=== PATIENT | male | born 1945 | race Caucasian/White ===

== ENCOUNTER 2023-10-11 09:47 | Emergency (ER) | payer MEDICARE, OTHER, SELFPAY ==
[2023-10-11 10:06] VITALS: BP 150/83
[2023-10-11 11:00] VITALS: BP 149/85
[2023-10-11 11:13] LABS: % Basophils 0.7 % (0-2); % Eosinophils 1.6 % (0-6); % Immature Granulocytes 0.3 % (0-0.5); % Lymphocytes 34.4 % (20.5-51.1); % Monocytes 6.5 % (1.7-9.3); % Neutrophils 56.5 % (42.2-75.2); Absolute Basophils 0.1 10^3/uL (0-0.2); Absolute Eosinophils 0.1 10^3/uL (0-0.7); Absolute Monocytes 0.6 10^3/uL (0.1-0.6); Absolute Neutrophils 4.9 10^3/uL (1.4-6.5); Hematocrit 31.6 % (39.0-52.0); Mean Corp Hgb Conc. 34.8 g/dL (33.0-37.0); Mean Corpuscular Hgb 32.6 pg (27.0-31.0); Mean Corpuscular Volume 93.8 fL (80.0-94.0); Mean Platelet Volume 9.8 fL (7.4-10.4); Nucleated Red Blood Cells % 0 % (-); Platelet Count 217 10^3/uL (130-400); Red Blood Cell Count 3.37 10^6/uL (4.70-6.10); Red Cell Dist. Width 14.3 % (11.5-14.5); White Blood Cell Count 8.6 10^3/uL (4.8-10.8)
[2023-10-11 11:32] LABS: Blood Urea Nitrogen 29 mg/dl (9-20); Calcium 9.2 mg/dl (8.4-10.2); Carbon Dioxide 22 mmol/L (22-30); Chloride 103 mmol/L (98-107); Glucose 135 mg/dl (70-99); Potassium 4.4 mmol/L (3.5-5.1); Sodium 137 mmol/L (135-145); eGFR > 60.00
[2023-10-11] MEDS: TYLENOL 1000 MG PO (11:48)
[2023-10-11 12:00] VITALS: BP 156/80
[2023-10-11] MEDS: KEFLEX 500 MG PO (12:33)
--- NOTE | 2023-10-22 15:14 | ED.GENMED ---
History of Present Illness
General
Chief Complaint: Nose Bleed
Time Seen by Provider: 10/11/23 10:40
History of Present Illness
History of Present Illness:
This is a LATE NOTE for the visit from 10/11/2023:
HPI:
The patient presents with nosebleed. It was primarily occurring from the right nostril however he has blood tracking in the back of his throat as well. He denies any other significant symptoms. He is on Eliquis for history of atrial fibrillation.
EXAM:
GENERAL: Well appearing in no distress
HEENT: Moist oral mucosa, there is no significant blood noted in the posterior oropharynx, there is scant amount of blood noted in both nostrils right greater than left
NEUROLOGIC: Excellent strength all extremities, no coordination deficits
PSYCHIATRIC: Appropriate mental status, normal insight and judgement
EXTREMITIES: Nontender, no edema, moves all extremities equally
SKIN: No rash, no lesions
NUMBER AND COMPLEXITY OF PROBLEMS ADDRESSED AT THE ENCOUNTER
� Chronic conditions affecting care: Paroxysmal A-fib on Eliquis, GERD
� Acute Exacerbation and/or Progression of Chronic Illness: This is an acute problem
� Differential Diagnosis includes: Anterior nosebleed, coagulopathy, posterior nosebleed, anemia
AMOUNT AND/OR COMPLEXITY OF DATA TO BE REVIEWED AND ANALYZED
� I performed an independent evaluation of and my interpretation is:
EKG:
CT:
X-rays:
Laboratory Studies: Hemoglobin 11.0, BUN 29, glucose 135
Other:
� Review of other/old records: The patient's hemoglobin in 2021 was 11.9
� Clinical information was obtained by an independent historian: None needed
� Prescriptions/Medications Considered but not given:
� Further testing considered but not performed:
RISK OF COMPLICATIONS AND/OR MORBIDITY OR MORTALITY OF PATIENT MANAGEMENT
� Social determinants of health affecting care: Lives at home
� Discussion with other providers:
� Escalation of care including admission/observation vs risk of discharge considered: I instructed to hold Eliquis for a couple of days. 5.5 cm rapid Rhino was placed. This was soaked with TXA. There is no further bleeding
after period of observation in the ED.
Past History
Past History
ED Past Medical History: Arrthythmia (Atrial fibrillation diagnosed in July 2019) and HTN; Negative CAD
ED Past Surgical History: Appendectomy and Other
Social History
Tobacco: Non-smoker
Alcohol: None
Drug: None
Personal:
Living: with family
Employment: Not employed
Family History
Family History: Hypertension
Phy Exam
Physical Exam
Physical Exam:
See HPI
Course
Orders/Labs/Results
Orders:
Orders
10/11/23 10:46
Phenylephrine 0.5% Regular Spr [Bryson-Synephrine 0.5% Nasal [place]] 1 spray .ROUTE .STK-MED ONE
10/11/23 10:50
Tranexamic Acid 1,000 mg .ROUTE .STK-MED ONE
10/11/23 11:01
Basic Metabolic Panel Urgent
Complete Blood Count/With Diff Urgent
10/11/23 11:42
Acetaminophen [Tylenol] 1,000 mg PO NOW STA
10/11/23 12:25
Cephalexin Monohydrate [Keflex] 500 mg PO NOW STA
Abnormal Lab Results
10/11/23
11:01
RBC 3.37 L 10^6/uL
(4.70-6.10)
Hgb 11.0 L g/dL
(13.0-18.0)
Hct 31.6 L %
(39.0-52.0)
MCH 32.6 H pg
(27.0-31.0)
BUN 29 H mg/dl
(9-20)
Glucose 135 H mg/dl
(70-99)
10/11/23 11:01
10/11/23 11:01
Vital Signs
Initial and Last Documented VS:
Initial Vital Signs
Temp Pulse BP Pulse Ox
97.8 F 93 150/83 99
10/11/23 10:06 10/11/23 10:06 10/11/23 10:06 10/11/23 10:06
Last Documented Vital Signs
Temp Pulse Resp BP Pulse Ox
97.8 F 88 17 156/80 96
10/11/23 10:06 10/11/23 12:30 10/11/23 12:30 10/11/23 12:00 10/11/23 12:30
Procedures
Nosebleed
Drug treatment: Tranexamic Acid
Treatment: local pressure applied and other (rapid rhino)
Post treatment bleeding: none- good control
*Critical Care Note
Total Time (30-74mins, 75-104mins- exclusive of procedures): Not Applicable
ED Attending Note
-
Portions of this chart may have been created with voice recognition software.� Occasional wrong word or��sound alike� substitutions may have occurred due to the inherent limitations of voice recognition software.
Discharge Plan
Departure
Patient Disposition: Home (Routine Discharge)
Date of Disposition: 10/11/23
Time of Disposition: 12:24
Patient with high blood pressure during this ER visit?: Yes
Discharge Problem:
Epistaxis
Instructions: Nosebleeds (DC), BLOOD PRESSURE
Prescriptions:
No Action
trazodone 100 mg Tablet
100 mg PO HS
escitalopram oxalate 20 mg Tablet
20 mg PO DAILY
lisinopril 5 mg tablet
5 mg PO DAILY Qty: 30 0RF
atorvastatin 80 mg Tablet
80 mg PO QPM
multivitamin Tablet
1 tab PO QPM
omeprazole 40 MG capsule,delayed release(DR/EC)
40 mg PO DAILYPRN PRN (Reason: GI issues)
metoprolol tartrate 25 mg Tablet
25 mg PO BID
tadalafil 20 mg Tablet
20 mg PO DAILYPRN PRN (Reason: ed)
famotidine [Pepcid] 40 mg Tablet
40 mg PO HS
pantoprazole [Protonix] 40 mg Tablet,Delayed Release (Dr/Ec)
40 mg PO DAILY
cholecalciferol (vitamin D3) [Vitamin D3] 25 mcg (1,000 unit) Tablet
25 mcg PO DAILY
aspirin 81 mg Tablet,Chewable
81 mg PO DAILY
PreserVision AREDS 2,148 mcg-113 mg-45 mg-17.4mg Tablet
1 tab PO BID
Eliquis 5 MG tablet
5 mg PO BID Qty: 180 1RF
Rx Instructions:
hold until 10/22/2023
Referrals:
Luigi Miller MD [Active] - Follow up in 2-3 days
Kavitha Anders MD [Family Provider] -
Activity Restrictions/Additional Instructions:
I placed a 5.5 cm rapid Rhino in the right nostril. I soaked this with TXA as well. This seems to of control the bleeding. Your hemoglobin level is 11.0�this is only slightly lower than 11.9 in 2021. Return here if worse. I recommend that you
call an ENT doctor such as Dr. Miller for follow-up. You will need to keep the packing in for the next couple of days. I gave a one-time dose of an antibiotic to help prevent infection because of the packing in your nostril. I recommend that you
also hold the Eliquis for the next day. Be sure to continue your blood pressure medication as well.
Interventions
Interventions:
ED- Fall Risk Assessment Last Done: 10/11/23 10:29
*ED COVID-19 Vaccine History Last Done: 10/11/23 10:09
*Nursing Disposition Last Done: 10/11/23 12:47
ED-EENT Assessment Last Done: 10/11/23 10:29
Discharge Date and Time
Discharge Date/Time: 10/11/23 12:47
Print Language: AFGHAN
== END 2023-10-11 12:47 | disposition home or self-care (01) ==
LOC: EMR 09:47
PROVIDERS: EMERGENCY PHYSICIAN Emergency Medicine; FAMILY PHYSICIAN Internal Medicine
DX: R04.0 Epistaxis (principal); I48.91 Unspecified atrial fibrillation; Z79.01 Long term (current) use of anticoagulants
CPT/HCPCS: 99283; 30901; 80048; 85025

== ENCOUNTER 2023-10-14 00:16 | Inpatient (IN) | payer MEDICARE, OTHER, SELFPAY ==
[2023-10-11 23:31] VITALS: BP 142/86
[2023-10-12] VITALS (10 sets, daily range): BP systolic 133–170; BP diastolic 68–90; BMI 23.8; BMI 22.7
[2023-10-12 01:00] LABS: Hematocrit 30.8 % (39.0-52.0); Hemoglobin 10.5 g/dL (13.0-18.0); Mean Corp Hgb Conc. 34.1 g/dL (33.0-37.0); Mean Corpuscular Hgb 32.8 pg (27.0-31.0); Mean Corpuscular Volume 96.3 fL (80.0-94.0); Mean Platelet Volume 10.5 fL (7.4-10.4); Platelet Count 220 10^3/uL (130-400); Red Cell Dist. Width 14.4 % (11.5-14.5); White Blood Cell Count 11.5 10^3/uL (4.8-10.8)
[2023-10-12] MEDS: MORPHINE SULFATE 4 MG IV (01:12)
[2023-10-12] MEDS: NSS 1000 IV (01:13)
[2023-10-12 01:35] LABS: Blood Urea Nitrogen 33 mg/dl (9-20); Calcium 9.4 mg/dl (8.4-10.2); Carbon Dioxide 20 mmol/L (22-30); Chloride 102 mmol/L (98-107); Glucose 163 mg/dl (70-99); Potassium 3.7 mmol/L (3.5-5.1); Sodium 137 mmol/L (135-145); eGFR > 60.00
--- NOTE | 2023-10-12 02:03 | ED.GENMED ---
History of Present Illness
General
Chief Complaint: Nose Bleed
Source: patient and spouse
Exam Limitations: none
Time Seen by Provider: 10/12/23 01:06
Nursing documentation reviewed up to this point in time: agreed with
History of Present Illness
History of Present Illness:
This is a 78-year-old gentleman with history of atrial fibrillation chronically maintained on Eliquis. He complains of intermittent epistaxis right nostril that initially began 2 weeks ago. Epistaxis worsened yesterday and he was evaluated in this
ED yesterday October 10 requiring an Epistat balloon placement in his right nostril which was initially effective in stopping the nosebleed.
He returns tonight with complaints of recurrent bleeding around the nasal stat as well as a sense of swallowing blood in the back of his throat.
He did stop the Eliquis 2 days ago due to recurrent right nostril epistaxis and he has an initial appointment with ENT scheduled for later this week.
He has had rare intermittent nosebleeds in the past but has never required ED visit nor ENT evaluation.
He complains of moderate pressure, pain within his nose and sinus area. He had mild nausea but no vomiting. Intermittent lightheadedness but no falls or syncope.
He denies fevers or chills.
Past History
Past History
ED Past Medical History: Arrthythmia (Atrial fibrillation diagnosed in July 2019) and HTN; Negative CAD
ED Past Surgical History: Appendectomy and Other
Social History
Tobacco: Non-smoker
Alcohol: None
Drug: None
Personal:
Living: with family
Employment: Not employed
Family History
Family History: Hypertension
Phy Exam
Physical Exam
Physical Exam:
GENERAL: 78-year-old gentleman appears his stated age, awake and alert, appears in moderate distress, sitting upright on stretcher, at bedside eyes intermittently dabbing at his nose.
EYE: anicteric
NECK: Supple, nontender, no meningismus, no significant adenopathy.
ENT: Nasostat balloon catheter tubing extruding from right nostril with scant oozing of blood from the right nostril. An additional half cc of air instilled into nasostat with successful resolution of epistaxis. There is mild streaking of blood
posteriorly but no active bleeding noted posterior pharynx. Left nostril is clear.
CARDIAC: Regular rate and rhythm. no murmur.
LUNGS: Clear breath sounds bilaterally, no acute respiratory distress, no wheezes/rales/rhonchi
ABDOMEN: Soft, nondistended, without focal tenderness
NEUROLOGICAL: Alert and oriented x3, no focal neuro deficits.
SKIN: Warm and dry, normal color, skin intact. No rash.
MUSCULOSKELETAL: No C/C/E. peripheral pulses are full and equal b/l. No palpable tenderness.
PSYCH: Normal and appropriate interaction.
Course
Orders/Labs/Results
Orders:
Orders
10/12/23 00:55
CBC/No Diff [Complete Blood Count/No Diff] Urgent
10/12/23 01:05
BMP [Basic Metabolic Panel] Urgent
10/12/23 01:08
0.9% Sodium Chloride 1000 ml [Nss] 1,000 ml IV BOLUS
Morphine Sulfate 4 mg IV NOW STA
10/12/23 02:36
CeFAZolin 1 GRAM [Ancef] 1 gram in 5 ml IV NOW
10/12/23 03:00
Flush (0.9% Sodium Chloride) [Flush (Nss)] See Dose Instructions IV PER PROTOCOL
10/12/23 03:47
CeFAZolin 1 GRAM [Ancef] 1 gram in 5 ml IV NOW
10/12/23 04:59
Admit/Transfer Patient As Directed
Co-Sign Provider:
Level of Care: Observation services
Assign to:: Medical/Surgical
Physician / Group: [email or web address]
Diagnosis: recurrent epistaxis
10/12/23 05:00
Code Status As Directed
Resuscitation Status: Full Code
10/12/23 Breakfast
Regular
At Your Request: Full Participation
10/12/23 06:53
0.9% Sodium Chloride [Nss (Preservative Free)] See Protocol IV PRN PRN
Bisacodyl [Dulcolax] 10 mg RECTAL [id number] PRN
Docusate W/Senna [Senokot-S] 1 tablet PO BIDPRN PRN
FOLic ACID [Folvite] 1 mg 0.9% Sodium Chloride 50 ml [Nss] 50 ml IV DAILYPRN
Lorazepam [Ativan] 1 mg IV Q1HPRN PRN
Lorazepam [Ativan] 1 mg PO Q2HPRN PRN
Lorazepam [Ativan] 2 mg IV Q1HPRN PRN
Polyethylene Glycol Powder [Miralax] 17 grams PO DAILYPRN PRN
10/12/23 06:53
Case Management Consult Once
Case Management Consult: Other
Comment: Substance abuse counseling
DIETARY CONSULT Routine
Reason for Consult: Nutrition support, possible refeeding guidelines
ENT CONSULT Routine
Consulting Provider: Luigi Miller
Was physician already notified: Yes
Reason for Consult: Intermittent recuret epistaxis from Rt nostril
GGTP Urgent
Activity As Directed
Activity Level: With Assistance
Intake/ Output As Directed
Frequency: Per unit guidelines
MSAS SCORE As Directed
MSAS Score 0-4: Repeat MSAS every 2 hours until 0-4 for three consecutive assessments, then every 4 hours x 48
hours.
MSAS Score 5-7: For MILD withdrawl symptoms. Repeat MSAS and RASS every 2 hours
MSAS Score 8-11: For MODERATE withdrawal symptoms. Repeat MSAS and RASS every 1 hour. Consider ICU or IMU
level of care.
MSAS Score > 11: For SEVERE withdrawal symptoms. Repeat MSAS and RASS every 1 hour. Notify provider, consider
ICU level of care.
MSAS Additional Instructions: If no improvement or no decrease in score from severe to moderate within 12
hours, consult psychiatry
MSAS Notify Provider: Notify provider if patient requires more than 10 mg of Lorazepam in eight hour period.
Pneumatic Compression Sleeves As Directed
Type: Knee high
Vital Signs As Directed
Frequency: Per unit guidelines
DX Deep Vein Thrombosis Video Routine
10/12/23 08:00
FOLic ACID [Folvite] 1 mg PO DAILY
Thiamine Injection 200 mg IV Q12
10/13/23 06:00
Basic Metabolic Panel IN AM
CBC/No Diff [Complete Blood Count/No Diff] IN AM
10/15/23 08:00
Thiamine HCl [Vitamin B1] 100 mg PO BID
Abnormal Lab Results
10/12/23 10/12/23
00:55 01:05
WBC 11.5 H 10^3/uL
(4.8-10.8)
RBC 3.20 L 10^6/uL
(4.70-6.10)
Hgb 10.5 L g/dL
(13.0-18.0)
Hct 30.8 L %
(39.0-52.0)
MCV 96.3 H fL
(80.0-94.0)
MCH 32.8 H pg
(27.0-31.0)
MPV 10.5 H fL
(7.4-10.4)
Carbon Dioxide 20 L mmol/L
(22-30)
BUN 33 H mg/dl
(9-20)
Glucose 163 H mg/dl
(70-99)
10/12/23 00:55
10/12/23 01:05
Vital Signs
Initial and Last Documented VS:
Initial Vital Signs
Pulse Resp BP Pulse Ox
112 26 142/86 96
10/11/23 23:31 10/11/23 23:31 10/11/23 23:31 10/11/23 23:31
Last Documented Vital Signs
Temp Pulse Resp BP Pulse Ox
97.8 F 107 16 163/86 96
10/12/23 08:31 10/12/23 08:31 10/12/23 08:31 10/12/23 08:31 10/12/23 04:45
MDM/Problems Addressed
Differential Diagnosis Includes:
Recurrent right nostril epistaxis despite Rhino Rocket in place and discontinuation of Eliquis 2 days ago.
Bleeding currently controlled with additional air inserted into Rhino Rocket.
Patient overall appears quite uncomfortable, will initiate IV fluids, IV pain medication and check labs, assess for potential acute blood loss anemia. Thus far remains hemodynamically stable.
Due to advanced age, multiple chronic medical conditions, recurrent bleeding patient will likely require acute hospitalization for close observation, pain medication and ENT evaluation.
Chronic conditions affecting care: HTN, Arrhythmia and Psychiatric illness
*Pulse Oximetry
Patient hypoxic: no
*Critical Care Note
Total Time (30-74mins, 75-104mins- exclusive of procedures): Not Applicable
Update Note
Update Note:
10/12/2023 0229 AM
Patient appears mildly more comfortable after IV morphine. He remains hemodynamically stable.
Scant intermittent oozing of blood from right nostril but for the most part remained stable and dry.
Hemoglobin 10.5 has dropped half a gram from yesterday at 11.0.
Reviewing previous records it appears patient's baseline hemoglobin is in the 11's
Will plan to admit to hospitalist service, continue IV fluids, IV pain medication and consider ENT evaluation in the a.m.
Will give Ancef for sinusitis prevention.
ED Attending Note
-
Portions of this chart may have been created with voice recognition software.� Occasional wrong word or��sound alike� substitutions may have occurred due to the inherent limitations of voice recognition software.
Discharge Plan
Departure
Patient Disposition: Admit
Date of Disposition: 10/12/23
Time of Disposition: 02:36
Admit to doctor: Shayy
Presentation/result/management discussed w/ accepting MD/DO: Hospitalist
Condition: Fair
Discharge Problem:
severe recurrent epistaxis
Interventions
Interventions:
*Risk Screen - Suicide Last Done: 10/11/23 23:31
*Neglect/Abuse Screening Last Done: 10/11/23 23:31
*Nursing Disposition Last Done: 10/12/23 07:09
ED-EENT Assessment Last Done: 10/12/23 01:15
[2023-10-12] MEDS: ANCEF 5 IV (04:12)
--- NOTE | 2023-10-12 04:54 | HPS.HSE ---
Family Physician
-
Family Physician: Kavitha Anders
Chief Complaint
-
nose bleed
History of Present Illness
78M HX chr eliquis for Prx AF seen at ER for evaluation of epistaxis.
- intermittent epistaxis form Rt nostril started 2 weeks ago
- seen at ER , Tx with Epistat balloon placement in right nostril yesterday
- Retuned tonight for recurrent epistaxis for Rt nostril
- stop Eliquis 3 days ago
Medical History
Past Medical History
Past Medical History: Reports Other
Additional Past Medical History:
Paroxysmal Atrial Fibrillation
Alcohol Use Disorder
Hypertension
GERD
Major Depression
Peripheral Neuropathy
History of ZAC Requiring Temporary HD
Past Surgical History: Reports Other
Additional Past Surgical History:
Bilateral Foot Surgeries
Appendectomy
Bilateral GASTON
R IJ HD Cath (temporary)
Social History
Tobacco: Former Smoker (Quit smoking 50 years ago.)
Alcohol: Other (History of chronic alcohol abuse. Patient states he drinks occasional beer. Denies daily or binge drinking.)
Drug: None
Family History
Family History: Not pertinent
Allergies / Home Medications
Allergies reflects when Allergies were last updated in [employer] [facility].
Home Medications with original date entered in [facility]
Allergy/Medication List:
Allergies
Allergy/AdvReac Type Severity Reaction Status Date / Time
acetaminophen [From Vicodin] Allergy Rash Verified 10/06/19 17:17
hydrocodone [From Vicodin] Allergy Rash Verified 10/06/19 17:17
Home Medications
apixaban 5 mg tablet (Eliquis) 5 mg PO BID #180 tabs 08/16/19
gabapentin 300 mg capsule 300 mg PO BID Pain 08/16/19
metoprolol tartrate 100 mg tablet 100 mg PO BID Blood pressure 08/16/19
temazepam 30 mg capsule (Restoril) 30 mg PO HS Mental Health/Anxiety 08/16/19
atorvastatin 40 mg tablet 80 mg PO QPM High cholesterol 10/06/19
omeprazole 40 mg capsule,delayed release 40 mg PO BID Gastrointestinal issue ##0 10/09/19
amlodipine 5 mg tablet 5 mg PO DAILY 10/19/21
docusate sodium 100 mg capsule (Colace) 100 mg PO DAILY 10/19/21
escitalopram oxalate 20 mg tablet 20 mg PO DAILY 10/19/21
fluoxetine 10 mg tablet 10 mg PO DAILY 10/19/21
lisinopril 10 mg tablet 10 mg PO DAILY 10/19/21
naltrexone 50 mg tablet 50 mg PO DAILY 10/19/21
trazodone 100 mg tablet 100 mg PO HS 10/19/21
Review of Systems
-
Constitutional: Reports No Symptoms
EENT: Reports Other (epistaxis from Rt nostril )
Respiratory: Reports No Symptoms
Cardiac: Reports No Symptoms
Abdomen/GI: Reports No Symptoms
: Reports No Symptoms
Musculoskeletal: Reports No Symptoms
Skin: Reports No Symptoms
Neurological: Reports No Symptoms
Endocrine: Reports No Symptoms
Hematologic/Lymphatic: Reports No Symptoms
Psych: Reports No Symptoms
Physical Exam
Vital Signs
Vital Signs
Pulse Resp BP Pulse Ox
88 18 133/78 96
10/12/23 02:44 10/12/23 02:44 10/12/23 02:44 10/12/23 04:45
Physical Exam
General: Well Developed, Well Nourished and Appears in Distress (mild )
HEENT: NormoCephalic, Anicteric, Moist mucous membranes, Atraumatic and Other (Nasostat balloon catheter tubing extruding from right nostril. Scant oozing of blood from the right nostril)
Respiratory: Clear
Cardiac: S1/S2, Regular Rhythm and Tachycardia; No Murmur or Rub
Breast: Deferred by me
GI: Soft, Non Tender, Non Distended and Normal Bowel Sounds; No Organomegaly
Rectal: Deferred by Provider
Genito-urinary: Deferred by me
Musculoskeletal: No Clubbing, No Cyanosis and No Edema
Skin: No Rash
Neuro: Nonfocal/grossly intact
Laboratory Results
-
10/12/23 00:55
10/12/23 01:05
Data Reviewed
-
Lab Data: Labs Reviewed by me
Old Records: Reviewed
Impression/Plan
-
Reviewed VS: afebrile HR 112 BP 140/85 RR 26
Data
WCC 11.5
Hgb 10.5 - was 11- 11.5
Plt 220
BUN 20
nl Cr
BG 163
Last hospitalist admission: 10/19/21 - 10/23/22
1. Possible syncope secondary to orthostatic hypotension versus alcohol abuse.
2. Hyponatremia secondary to alcohol use/beer potomania positive plus or minus related to fluoxetine.
3. Metabolic acidosis and hyperkalemia, suspect acidosis secondary to alcohol abuse.
4. Headache which seems secondary to alcohol withdrawal versus concussion with mechanical fall versus worsening of myopia.
ASSESSMENT & PLAN
Pending Rx reconciliation
Recurrent epistaxis
- intermittent oozing of blood from right nostril but for the most part remained stable and dry.
- Borderline acute blood loss anemia : minimal drop in Hgb ( 11.0 --> 10.5)
- Empiric IV Cefazolin
- Trend Hgb
- ENT consulted
Prx AF
- held Eliquis since 10/09/23
- cont Metoprolol
Essential HTN
- cont Lisinopril , Metoprolol
Peripheral neuropathy.
HX depression.
- cont Escitalopram
SHx suggestive of ETOH use disorder - report a couple of Beer daily
Post traumatic stress disorder.
- MSAS protocol
DVT Px: SCD
Full code
Obs MS
--- NOTE | 2023-10-12 08:08 | PHANOTE ---
Addendum entered by Daina Torres 10/12/23 08:12:
Patient does Eliquis at retail pharmacy and some ecw at this time until [facility]
Original Note:
[facility] [phone] option 1 then 2, unfortunately wasn't not able to speak to pharmacy someone at the call center did take my information and awaiting call back and/or fax of medication list
[2023-10-12] MEDS: FOLVITE 1 MG PO (09:43)
[2023-10-12] MEDS: THIAMINE INJECTION 200 MG IV ×2 (09:43→20:43)
[2023-10-12] MEDS: TYLENOL 650 MG PO ×2 (09:45→16:43)
[2023-10-12 10:37] LABS: GGTP 62 U/L (15-73)
--- NOTE | 2023-10-12 12:22 | CON.MD ---
Consultation - Medical
-
Epistaxis
78 yo c HTN, afib on Eliquis, EtOH use, R nasal packing placed yesterday for epistaxis. Presented today for recurrent bleeding.
BP still mildly elevated, Eliquis being held
Packing apparently adjusted, not actively bleeding
R pack in place
OC - dry
A/P Epistaxis
Controlled with present packing
Can add additional few cc's of air if needed into present pack
Would continue prophylactic Ancef to avoid sinusitis
Continue to hold Eliquis for additional 3-4 days
Would leave packing in place 2- 3 days
Remove in office if discharged, otherwise will remove in hospital
Follow BP, H & H
[2023-10-12] MEDS: LOPRESSOR 25 MG PO ×2 (15:11→20:43)
[2023-10-12] MEDS: ZESTRIL 5 MG PO (15:12)
[2023-10-12] MEDS: LEXAPRO 20 MG PO (15:12)
[2023-10-12] MEDS: PROTONIX 40 MG PO (15:12)
--- NOTE | 2023-10-12 20:10 | PTCARENOTE ---
Pt began to bleed a moderate amount from the R nostril w/ the balloon in place. Pt stated he felt SOB, dizzy, 10/10 headache. VSS sating 95% on room air. RN placed 2L NC in the left nostril with humidified O2 sating 95% for comfort. RN notified BALANCE STAFF INSPECTOR
to come assess patient. After 15 minutes, pt stopped bleeding. BALANCE STAFF INSPECTOR ordered Tylenol 1000mg for headache. Pt is resting comfortably w/ call steele within reach.
[2023-10-12] MEDS: LIPITOR 80 MG PO (20:48)
[2023-10-12] MEDS: TYLENOL 1000 MG PO (20:49)
[2023-10-12] MEDS: DESYREL 100 MG PO (22:35)
[2023-10-12] MEDS: PEPCID 40 MG PO (22:35)
[2023-10-12] MEDS: COMPAZINE 5 MG IV (23:11)
[2023-10-13 06:48] LABS: Hematocrit 27.8 % (39.0-52.0); Hemoglobin 9.3 g/dL (13.0-18.0); Mean Corp Hgb Conc. 33.5 g/dL (33.0-37.0); Mean Corpuscular Hgb 32.9 pg (27.0-31.0); Mean Corpuscular Volume 98.2 fL (80.0-94.0); Mean Platelet Volume 10.2 fL (7.4-10.4); Platelet Count 193 10^3/uL (130-400); Red Blood Cell Count 2.83 10^6/uL (4.70-6.10); Red Cell Dist. Width 14.5 % (11.5-14.5); White Blood Cell Count 11.1 10^3/uL (4.8-10.8)
[2023-10-13 07:18] LABS: Blood Urea Nitrogen 21 mg/dl (9-20); Calcium 8.9 mg/dl (8.4-10.2); Carbon Dioxide 26 mmol/L (22-30); Chloride 104 mmol/L (98-107); Estimated Creatinine Clearance 65 ml/min; Glucose 115 mg/dl (70-99); Potassium 4.5 mmol/L (3.5-5.1); Sodium 137 mmol/L (135-145); eGFR > 60.00
[2023-10-13 07:20] VITALS: BP 147/75
[2023-10-13] MEDS: THIAMINE INJECTION 200 MG IV ×2 (08:27→20:39)
[2023-10-13] MEDS: FOLVITE 1 MG PO (08:27)
[2023-10-13] MEDS: LEXAPRO 20 MG PO (08:27)
[2023-10-13] MEDS: ZESTRIL 5 MG PO (08:27)
[2023-10-13] MEDS: LOPRESSOR 25 MG PO ×2 (08:27→20:38)
[2023-10-13] MEDS: PROTONIX 40 MG PO (08:27)
[2023-10-13] MEDS: TYLENOL 650 MG PO (08:28)
--- NOTE | 2023-10-13 11:04 | W.PN.HOSP.TC ---
Today's Communication/Plan
-
CW nasal balloon catheter and antibiotics
Follow ENT recs
Assessment / Plan
Assessment / Plan
Recurrent epistaxis
- Status post right nasal ballon catheter insertion. Pressure increased yesterday in the balloon catheter. Still some ongoing oozing. Appreciate ENT input. ENT to review regarding further treatments-cautery versus topical medication
application.
- Empiric IV Cefazolin
- Trend Hgb
Prx AF
- held Eliquis since 10/09/23
- cont Metoprolol
Essential HTN
- cont Lisinopril , Metoprolol
Peripheral neuropathy.
HX depression.
- cont Escitalopram
SHx suggestive of ETOH use disorder - report a couple of Beer daily
Post traumatic stress disorder.
- MSAS protocol
- No signs of NURIS
DVT Px: SCD
Full code
Obs MS
Anticipated Discharge: 24 - 48 hours
Subjective/Interval History
-
Date of Service: October 13, 2023
Slow anterior ooze from the right nostril. Denies any posterior nasal dripping. Some discomfort from the nasal balloon catheter. No fever or chills.
No nausea vomiting.
Objective Data
-
Labs:
Laboratory Results
10/13/23
05:36
WBC 11.1 H
Hgb 9.3 L
Hct 27.8 L
Plt Count 193
Sodium 137
Potassium 4.5
Chloride 104
Carbon Dioxide 26
BUN 21 H
Creatinine 0.9
Glucose 115 H
Calcium 8.9
Vital Signs:
Vital Signs
Temp Pulse Resp BP Pulse Ox
98.6 F 73 18 147/75 91
10/13/23 07:20 10/13/23 08:27 10/13/23 07:20 10/13/23 08:27 10/13/23 07:20
I&O
10/12/23 10/13/23 10/14/23
06:59 06:59 06:59
Intake Total 240 / 240
Balance 240 / 240
Review of Systems
-
Respiratory: Denies Trouble Breathing
Cardiac: Denies Chest Pain
Neuro: Denies Dizzy
Physical Exam
-
General: No Apparent Distress
HEENT: Moist Mucous Membranes and Other (nasal balloon catheter in situ R side ; some ooze of dark blood noted. No profuse epistaxis.)
Respiratory: Non Labored Respirations and Accessory Resp Muscle Use
Cardiac: Regular Rhythm and S1/S2
Psych: Calm; Negative Confused
Data Reviewed
-
Labs: Labs Reviewed by me
--- NOTE | 2023-10-13 12:04 | W.PN.UPDATE ---
Update Note
Progress Note Update
Pt had some oozing R nares this AM
Hgb - sl drop to 9.[address] - no active bleeding
OC - dry
A/P Epistaxis
OK with present pack
Added additional 1-2 cc of air
Antibiotic on cotton ball placed in ant nares to help with ooze
On prophylactic antibx
Possible removal of pack in 1-2 days
Can be done in office if discharged
[2023-10-13] MEDS: TORADOL 15 MG IV (16:06)
--- NOTE | 2023-10-13 16:29 | CM ---
Alert awake oriented patient who lives with his Jessica who lives in a 2 story home with 3 step to enter and 10 steps to bed and bathroom. He is independent in driving and in all activities of daily living.He was offered VN he declined need.CPAP
with [facility]MARISELA letter given and explained.
No VN hx / No SNF history
Pharmacy [facility]
PCP DR Anders
PLAN Home Declined VN
[2023-10-13] MEDS: LIPITOR 80 MG PO (17:17)
--- NOTE | 2023-10-13 17:21 | PTCARENOTE ---
pt started bleeding through the R nare, while eating dinner. Pressure applied, gauge changed. ENT made aware. no new orders at this time. will continue plan of care.
[2023-10-13] MEDS: DESYREL 100 MG PO (21:02)
[2023-10-13] MEDS: PEPCID 40 MG PO (21:03)
[2023-10-13 23:41] VITALS: BP 93/46
[2023-10-14] VITALS (15 sets, daily range): BP systolic 109–144; BP diastolic 50–71
[2023-10-14] MEDS: THIAMINE INJECTION 200 MG IV ×2 (09:41→20:10)
[2023-10-14] MEDS: PROTONIX 40 MG PO (09:42)
[2023-10-14] MEDS: FOLVITE 1 MG PO (09:42)
[2023-10-14] MEDS: LOPRESSOR 25 MG PO ×2 (09:42→20:06)
[2023-10-14] MEDS: LEXAPRO 20 MG PO (09:42)
[2023-10-14] MEDS: ZESTRIL 5 MG PO (09:43)
[2023-10-14] MEDS: TORADOL 15 MG IV (09:51)
--- NOTE | 2023-10-14 10:48 | PTCARENOTE ---
Patient with nose bleed this AM. ENT and Dr. Martins made aware. Plan of care ongoing.
--- NOTE | 2023-10-14 11:03 | W.PN.HOSP.TC ---
Today's Communication/Plan
-
Continue with the nasal balloon catheter. ENT following.
Follow H&H. Continue with empirical antibiotics.
Assessment / Plan
Assessment / Plan
Recurrent epistaxis
- Status post right nasal balloon catheter insertion. Pressure increased again yesterday in the balloon catheter. Remains with some ongoing oozing. ENT following. ENT to review regarding further treatments
- Empiric IV Cefazolin
- Trend Hgb
Acute blood loss anemia - HH dropped more than a gram since admission.Lab from today pending. BP stable.
Melena sec to epistaxis .
Prx AF
- held Eliquis since 10/09/23
- cont Metoprolol
Essential HTN
- cont Lisinopril , Metoprolol
Peripheral neuropathy.
HX depression.
- cont Escitalopram
SHx suggestive of ETOH use disorder - report a couple of Beer daily
Post traumatic stress disorder.
- MSAS protocol
- No signs of NURIS
DVT Px: SCD
Full code
Obs MS
Anticipated Discharge: 24 - 48 hours
Subjective/Interval History
-
Date of Service: October 14, 2023
Patient still with a slight ongoing ooze from right nostril. He is noticing black stools today.
No fever or chills.
Objective Data
-
Vital Signs:
Vital Signs
Temp Pulse Resp BP Pulse Ox
98.9 F 64 20 128/71 92
10/14/23 07:55 10/14/23 09:42 10/14/23 07:55 10/14/23 09:42 10/14/23 07:55
I&O
10/13/23 10/14/23 10/15/23
06:59 06:59 06:59
Intake Total 240 / 240 240 / 240
Balance 240 / 240 240 / 240
Review of Systems
-
Constitutional: Denies Fever
Respiratory: Denies Trouble Breathing
Cardiac: Denies Chest Pain
Abdomen/GI: Denies Nausea or Vomiting
Neuro: Denies Dizzy
Physical Exam
-
General: No Apparent Distress
HEENT: Moist Mucous Membranes and Other (right nare with Balloon catheter with anterior epistaxis at this minute.)
Respiratory: Non Labored Respirations; Negative Accessory Resp Muscle Use
Neuro: AO x 3
[2023-10-14 11:56] LABS: Hematocrit 26.7 % (39.0-52.0); Hemoglobin 8.9 g/dL (13.0-18.0); Mean Corp Hgb Conc. 33.3 g/dL (33.0-37.0); Mean Corpuscular Hgb 32.6 pg (27.0-31.0); Mean Corpuscular Volume 97.8 fL (80.0-94.0); Mean Platelet Volume 10.1 fL (7.4-10.4); Platelet Count 208 10^3/uL (130-400); Red Blood Cell Count 2.73 10^6/uL (4.70-6.10); Red Cell Dist. Width 14.7 % (11.5-14.5); White Blood Cell Count 9.4 10^3/uL (4.8-10.8)
--- NOTE | 2023-10-14 12:04 | W.PN.UPDATE ---
Update Note
Progress Note Update
intermittent bleeding with pack in place
Stable but Hgb continues to slowly drop
Will take pt to OR for endoscopic control of nasal bleeding
[2023-10-14 12:41] LABS: INR 1.04; PT 13.6 Sec (11.4-14.6)
[2023-10-14] MEDS: MORPHINE SULFATE 2 MG IV (12:50)
--- NOTE | 2023-10-14 14:40 | W.PN.UPDATE ---
Update Note
Progress Note Update
Pt taken to OR due to intermittent bleeding
No significant active bleeding, source seemed to be primarily along anterior/inferior septum
Cauterized
Pack replaced to promote healing
Follow H & H , coag studies pending
Potentially could have packing removed in AM, and d/c home if stable
--- NOTE | 2023-10-14 14:45 | CM ---
As per UR pt changed to inpatient status.
On CM rounds pt had epistaxis episode.
Will give IMM letter tomorrow.
Offered VN yesterday he had declined.
PLAN Home no anticipated VN need
--- NOTE | 2023-10-14 15:50 | PTCARENOTE ---
Arrived from OR with rapid rhino intact. Call steele within reach.
[2023-10-14] MEDS: ANCEF 5 IV ×2 (16:19→23:51)
[2023-10-14] MEDS: LIPITOR 80 MG PO (16:19)
[2023-10-14] MEDS: ANESTHETIC LOZENGE 1 LOZENGE PO (18:25)
[2023-10-14] MEDS: DESYREL 100 MG PO (21:24)
[2023-10-14] MEDS: PEPCID 40 MG PO (21:24)
[2023-10-15] VITALS (13 sets, daily range): BP systolic 122–162; BP diastolic 60–75
[2023-10-15] MEDS: TORADOL 15 MG IV ×3 (04:40→23:23)
[2023-10-15 07:04] LABS: Hematocrit 25.1 % (39.0-52.0); Hemoglobin 8.3 g/dL (13.0-18.0); Mean Corp Hgb Conc. 33.1 g/dL (33.0-37.0); Mean Corpuscular Hgb 32.8 pg (27.0-31.0); Mean Corpuscular Volume 99.2 fL (80.0-94.0); Platelet Count 207 10^3/uL (130-400); Red Blood Cell Count 2.53 10^6/uL (4.70-6.10); Red Cell Dist. Width 14.2 % (11.5-14.5); White Blood Cell Count 17.8 10^3/uL (4.8-10.8)
[2023-10-15] MEDS: ANCEF 5 IV ×3 (09:14→23:24)
[2023-10-15] MEDS: ZESTRIL 5 MG PO (09:15)
[2023-10-15] MEDS: PROTONIX 40 MG PO (09:15)
[2023-10-15] MEDS: LEXAPRO 20 MG PO (09:15)
[2023-10-15] MEDS: LOPRESSOR 25 MG PO ×2 (09:15→21:35)
[2023-10-15] MEDS: FOLVITE 1 MG PO (09:15)
[2023-10-15] MEDS: VITAMIN B1 100 MG PO ×2 (09:16→21:35)
[2023-10-15 10:22] LABS: Iron 31 ug/dl (49-181)
[2023-10-15 10:31] LABS: Percent Saturation 9 % (20-50); Total Iron Binding Capacity 317 ug/dl (261-462)
[2023-10-15 10:59] LABS: Ferritin 11.9 ng/ml (17.9-464.0)
--- NOTE | 2023-10-15 11:46 | W.PN.HOSP.TC ---
Today's Communication/Plan
-
DC planning
Assessment / Plan
Assessment / Plan
Recurrent epistaxis
- Status post right nasal balloon catheter insertion.
- Continue breathing had right nose cautery with control of bleeding in OR yesterday. Prophylactic right nasal balloon catheter in place. No further epistaxis.
- Empiric IV Cefazolin
Acute blood loss anemia - HH dropped more than a gram since admission.Lab noted. BP stable. Check iron stores and replete if needed otherwise continue to monitor.
Melena sec to epistaxis .
Leukocytosis-elevated white count post cautery noted suspect reactive. Afebrile. Currently on IV Ancef -continue.
Prx AF
- held Eliquis since 10/09/23
- cont Metoprolol
Essential HTN
- cont Lisinopril , Metoprolol
Peripheral neuropathy.
HX depression.
- cont Escitalopram
SHx suggestive of ETOH use disorder - report a couple of Beer daily
Post traumatic stress disorder.
- MSAS protocol
- No signs of NURIS
DVT Px: SCD
Full code
DC home today if ok form ENT standpoint
Advance diet.
Anticipated Discharge: Today
Subjective/Interval History
-
Date of Service: October 15, 2023
S/p cautery for epistaxis in OR yesterday. Right now he has right nasal Balloon catheter in place without any further evidence of bleeding.
Some sore throat. Denies shortness of breath.
No nausea vomiting.
No fevers.
Objective Data
-
Labs:
Laboratory Results
10/15/23
06:48
WBC 17.8 H
Hgb 8.3 L
Hct 25.1 L
Plt Count 207
Vital Signs:
Vital Signs
Temp Pulse Resp BP Pulse Ox
98 F 67 20 129/60 98
10/15/23 11:37 10/15/23 11:37 10/15/23 11:37 10/15/23 11:37 10/15/23 11:37
I&O
10/14/23 10/15/23 10/16/23
06:59 06:59 06:59
Intake Total 240 / 240 435 / 435
Balance 240 / 240 435 / 435
Review of Systems
-
Constitutional: Reports Weakness (feels some what weaker); Denies Fever
Abdomen/GI: Denies Abdominal Pain, Nausea or Vomiting
Neuro: Denies Dizzy
Physical Exam
-
General: No Apparent Distress
HEENT: Moist Mucous Membranes and Other (no epistaxis ; rt nare balloon catheter in situ)
Respiratory: Clear to Auscultation
Cardiac: Regular Rhythm and S1/S2
GI: Soft
Neuro: AO x 3
Data Reviewed
-
Labs: Labs Reviewed by me
[2023-10-15] MEDS: ANESTHETIC LOZENGE 1 LOZENGE PO ×3 (13:02→22:15)
--- NOTE | 2023-10-15 15:18 | PTCARENOTE ---
pt started bleeding from L Nare. Dr. Martins and ENT notified. continue plan of care.
--- NOTE | 2023-10-15 16:40 | CM ---
Pt signed IMM letter today.Copy on chart.
Continues with epistaxis episode.
Offered VN yesterday he had declined.
PLAN Home no anticipated VN need
[2023-10-15] MEDS: NSS 1000 IV (16:41)
[2023-10-15] MEDS: LIPITOR PO (17:45)
[2023-10-15] MEDS: OFIRMEV 100 IV (18:34)
--- NOTE | 2023-10-15 19:23 | PTCARENOTE ---
pt started bleeding again at 1800, ENT and Dr. Martins notified. pt to OR at 1845 as per ENT.
--- NOTE | 2023-10-15 19:47 | W.IMMPOSTOP ---
Surgical Immed Post Op Note
-
Primary Surgeon: Luigi Miller M.D
Assisting Surgeon: None
Pre-op Diagnosis: Right epistaxis
Post-op Diagnosis: Same
Procedure Performed: Nasal endoscopy and cautery; nasal packing applied
Anesthesia Type: General
Specimen / Cultures: None
Estimated Blood Loss: 5ml
Complications: None
Operative Findings: Raw, friable nasal mucosa with several areas of oozing
[2023-10-15] MEDS: SUBLIMAZE 25 MCG IV (20:29)
[2023-10-15] MEDS: PEPCID 40 MG PO (21:36)
--- NOTE | 2023-10-15 21:57 | PTCARENOTE ---
Receive pt from PACU. Pt alert oriented X3, in no distress. Dressing applied to the nasal area. Dressing dry and intact, no signs of bleeding. Pt complains of discomfort in his mouth and throat. Pt offers no complaint of dizziness, drowsiness, but
he admits to some headache that improved from earlier. VSS (T=97.7, HR=78, RR=18, HG=684/69, SpO2=94% on RA). Will continue to monitor the pt's condition.
[2023-10-15 22:06] LABS: Hematocrit 25.6 % (39.0-52.0); Hemoglobin 8.6 g/dL (13.0-18.0)
[2023-10-15] MEDS: DESYREL PO (23:21)
[2023-10-16 00:30] VITALS: BP 116/52
[2023-10-16 03:14] VITALS: BP 127/61
[2023-10-16] MEDS: TORADOL 15 MG IV ×3 (05:26→23:45)
[2023-10-16 06:41] LABS: Hematocrit 22.9 % (39.0-52.0); Hemoglobin 7.9 g/dL (13.0-18.0); Mean Corp Hgb Conc. 34.5 g/dL (33.0-37.0); Mean Corpuscular Hgb 33.2 pg (27.0-31.0); Mean Corpuscular Volume 96.2 fL (80.0-94.0); Mean Platelet Volume 10.2 fL (7.4-10.4); Platelet Count 226 10^3/uL (130-400); Red Blood Cell Count 2.38 10^6/uL (4.70-6.10); Red Cell Dist. Width 14.5 % (11.5-14.5); White Blood Cell Count 13.3 10^3/uL (4.8-10.8)
[2023-10-16 07:17] VITALS: BP 120/54
[2023-10-16] MEDS: ANCEF 5 IV ×3 (10:00→23:44)
[2023-10-16] MEDS: LEXAPRO 20 MG PO (10:01)
[2023-10-16] MEDS: LOPRESSOR 25 MG PO ×2 (10:01→20:00)
[2023-10-16] MEDS: PROTONIX 40 MG PO (10:01)
[2023-10-16] MEDS: FOLVITE 1 MG PO (10:01)
[2023-10-16] MEDS: ZESTRIL 5 MG PO (10:01)
[2023-10-16] MEDS: VITAMIN B1 100 MG PO ×2 (10:01→20:00)
[2023-10-16] MEDS: SENOKOT-S 1 TABLET PO (10:02)
[2023-10-16] MEDS: NSS 1000 IV (10:02)
[2023-10-16] MEDS: ANESTHETIC LOZENGE 1 LOZENGE PO ×2 (10:02→17:01)
[2023-10-16] MEDS: TYLENOL 650 MG PO ×2 (10:02→21:28)
[2023-10-16 11:30] VITALS: BP 124/53
--- NOTE | 2023-10-16 11:33 | CM ---
Patient seen bedside, reports no needs to CM at this time. VN previously offered to patient, patient declined. CM will continue to follow for all discharge planning needs.
Plan; home no needs.
--- NOTE | 2023-10-16 12:27 | W.PN.HOSP.TC ---
Today's Communication/Plan
-
start on IV iron
Continue with [id number] medic
Abdominal x-ray and start on bowel regimen
Assessment / Plan
Assessment / Plan
Recurrent epistaxis
- Status post right nasal balloon catheter insertion.
- Continue breathing had right nose cautery with control of bleeding in OR 10/13.
- OR again 10/14 to relook but no cautery done
- cw Empiric IV Cefazolin
Acute blood loss anemia - HH dropped more than a gram since admission.Lab noted. BP stable. Aim to keep HH >7.0
Melena sec to epistaxis .
Iron def - replete IV
Leukocytosis-elevated white count post cautery noted suspect reactive. Afebrile. Currently on IV Ancef -continue.Improving.
Constipation -start on laxatives , check AXR.
Prx AF
- held Eliquis since 10/09/23
- cont Metoprolol
Essential HTN
- cont Lisinopril , Metoprolol
Peripheral neuropathy.
HX depression.
- cont Escitalopram
SHx suggestive of ETOH use disorder - report a couple of Beer daily
Post traumatic stress disorder.
- MSAS protocol
- No signs of NURIS
DVT Px: SCD
Full code
Anticipated Discharge: 24 - 48 hours
Subjective/Interval History
-
Date of Service: October 16, 2023
He feels constipated.
Feels bloated and when he eats his abdo discomfort is worse as well.
No N/V.
No anterior epistaxis
Objective Data
-
Labs:
Laboratory Results
10/16/23
06:24
WBC 13.3 H
Hgb 7.9 L
Hct 22.9 L
Plt Count 226
Vital Signs:
Vital Signs
Temp Pulse Resp BP Pulse Ox
98 F 74 20 120/54 97
10/16/23 07:17 10/16/23 10:01 10/16/23 07:17 10/16/23 10:01 10/16/23 07:17
I&O
10/15/23 10/16/23 10/17/23
06:59 06:59 06:59
Intake Total 435 / 435 1080 / 1080
Output Total 400 / 400
Balance 435 / 435 680 / 680
Review of Systems
-
Constitutional: Denies Fever
EENT: Denies Sore Throat
Respiratory: Denies Cough or Trouble Breathing
Cardiac: Denies Chest Pain
Neuro: Denies Dizzy
Physical Exam
-
General: No Apparent Distress
HEENT: Moist Mucous Membranes
Respiratory: Clear to Auscultation
Cardiac: Regular Rhythm and S1/S2
GI: Soft, Nondistended and Tender (discomfort in all quadrants ; no rebound); Negative Normal Bowel Sounds (hyperactive)
Neuro: AO x 3
Data Reviewed
-
Labs: Labs Reviewed by me
[2023-10-16] MEDS: MIRALAX 17 GRAMS PO (13:31)
[2023-10-16] MEDS: FERRLECIT 110 MG IV (13:31)
--- NOTE | 2023-10-16 13:46 | W.PN.ENT ---
Today's Communication
-
As above
Impression / Plan
-
Doing well.
We would plan to remove packing on Wednesday or Wednesday
He could be discharge tomorrow and followup with us in the office
Subjective Data
-
\\He is doing well. No bleeding since trip to OR yesterday for cautery and re-packing
Objective Data
-
Vital Signs
Temp Pulse Resp BP Pulse Ox
97.4 F 67 18 124/53 96
10/16/23 11:30 10/16/23 11:30 10/16/23 11:40 10/16/23 11:30 10/16/23 11:30
Intake & Output
10/15/23 10/16/23 10/17/23
06:59 06:59 06:59
Intake:
Oral fluids 360 / 360 240 / 240
IV fluids (Total) 75 / 75 840 / 840
Normosol 75 / 75 100 / 100
Output:
Urine, Voided 400 / 400
Other:
Number of approximated MODERATE 2 2
amounts of urine
Number of approximated LARGE 1 1
amounts of urine
How many times incontinent 1
SATURATED amount urine
Lab Results
10/16/23 06:24
10/13/23 05:36
PT 13.6 Sec (11.4-14.6) 10/14/23 12:14
INR 1.04 10/14/23 12:14
Calcium 8.9 mg/dl (8.4-10.2) 10/13/23 05:36
Physical Exam
-
Mustache dressing applied yesterday is still dry
No bleeding whatsoever today
[2023-10-16 15:35] VITALS: BP 107/44
[2023-10-16] MEDS: FLUSH (NSS) 2 FLUSH IV (17:02)
[2023-10-16] MEDS: LIPITOR 80 MG PO (18:27)
[2023-10-16] MEDS: NSS IV (19:38)
[2023-10-16] MEDS: COLACE 100 MG PO (20:00)
[2023-10-16] MEDS: SENOKOT 8.59999999999999964 MG PO (21:19)
[2023-10-16] MEDS: PEPCID 40 MG PO (21:20)
--- NOTE | 2023-10-16 22:51 | PTCARENOTE ---
Pt was having a small amount of bleeding from his noses. Some facial tissues was found under the dressing. Pt advised to avoid picking on his noses to minimize irritation and bleeding. Dressing reinforced. No bleeding noted since then. Will keep
monitoring the pt.
[2023-10-16 23:18] VITALS: BP 117/57
[2023-10-16] MEDS: DESYREL 100 MG PO (23:58)
[2023-10-17] VITALS (7 sets, daily range): BP systolic 109–139; BP diastolic 55–64; PULSE 59–60; O2SAT 96–97
[2023-10-17] MEDS: VITAMIN B1 100 MG PO ×2 (09:04→19:43)
[2023-10-17] MEDS: MIRALAX 17 GRAMS PO (09:04)
[2023-10-17] MEDS: FOLVITE 1 MG PO (09:04)
[2023-10-17] MEDS: LEXAPRO 20 MG PO (09:04)
[2023-10-17] MEDS: COLACE 100 MG PO ×2 (09:04→19:42)
[2023-10-17] MEDS: LOPRESSOR 25 MG PO ×2 (09:04→19:42)
[2023-10-17] MEDS: ZESTRIL 5 MG PO (09:04)
[2023-10-17] MEDS: ANCEF 5 IV ×3 (09:04→23:08)
[2023-10-17] MEDS: PROTONIX 40 MG PO (09:04)
[2023-10-17] MEDS: TORADOL 15 MG IV ×2 (09:33→17:05)
[2023-10-17] MEDS: ANESTHETIC LOZENGE 1 LOZENGE PO (09:33)
--- NOTE | 2023-10-17 09:55 | W.PN.HOSP.TC ---
Today's Communication/Plan
-
dc planning
c/w IV ABx
PT/OT
IV Iron
Assessment / Plan
Assessment / Plan
Physical Exam
-
General: No Apparent Distress
HEENT: Moist Mucous Membranes
Respiratory: Clear to Auscultation
Cardiac: Regular Rhythm and S1/S2
GI: Soft, Nondistended and Tender (discomfort in all quadrants ; no rebound); Negative Normal Bowel Sounds (hyperactive)
Neuro: AO x 3
#Recurrent epistaxis exacerbated by Eliquis
- Status post right nasal balloon catheter insertion.
- Continue breathing had right nose cautery with control of bleeding in OR 10/13.
- OR again 10/14 to relook but no cautery done
- cw Empiric IV Cefazolin. WBC is coming down.
- Keep packing to be removed in office Per ENT
Acute blood loss anemia
BP stable. No Tachycardia.
Aim to keep HH >7.0
Melena sec to epistaxis .
Iron def - replete IV
Leukocytosis-elevated white count post cautery noted suspect reactive. Afebrile. Currently on IV Ancef -continue.Improving.
Constipation , c/w bowel regimen
Prx AF
- held Eliquis since 10/09/23, unable to start due to severe recurrent epistaxis.
- cont Metoprolol
Essential HTN
- cont Lisinopril , Metoprolol
Peripheral neuropathy.
HX depression.
- cont Escitalopram
SHx suggestive of ETOH use disorder - report a couple of Beer daily
Post traumatic stress disorder.
- MSAS protocol
- No signs of NURIS
DVT Px: SCD
Full code
Total time spent to see the patient on the floor, examine the patient, review data and lab results, discuss treatment plan with patient, nursing staff around 55 minutes
Anticipated Discharge: Within 24 hours
Subjective/Interval History
-
Date of Service: October 17, 2023
Denies pain in throat or bleeding from the nose
No chest pain or cough or sob
Objective Data
-
Vital Signs:
Vital Signs
Temp Pulse Resp BP Pulse Ox
97.2 F 64 18 122/62 96
10/17/23 07:48 10/17/23 07:48 10/17/23 07:48 10/17/23 07:48 10/17/23 07:48
I&O
10/16/23 10/17/23 10/18/23
06:59 06:59 06:59
Intake Total 1080 / 1080 1630 / 1630
Output Total 400 / 400 500 / 500
Balance 680 / 680 1130 / 1130
--- NOTE | 2023-10-17 11:46 | CM ---
Patient seen bedside, discussed PT recommendation of home health. Patient declines VN services at this time. CM will continue to be available for all discharge planning needs.
Plan; home no needs, declining VN services.
[2023-10-17] MEDS: FERRLECIT 110 MG IV (13:35)
[2023-10-17] MEDS: DULCOLAX 10 MG RECTAL (13:41)
[2023-10-17] MEDS: LIPITOR 80 MG PO (16:52)
--- NOTE | 2023-10-17 17:48 | PTCARENOTE ---
Outer gauze dressing has moderate amount of bloody drainage. Dr. Paul calvert who gave instructions for nursing to remove outer dressing. Dressing removed and no further bleeding/drainage noted from nostril.
--- NOTE | 2023-10-17 17:53 | W.PN.ENT ---
Today's Communication
-
As above
Impression / Plan
-
Doing well.
We would plan to remove packing on Wednesday
Hopefully home tomorrow
Subjective Data
-
The patient is doing very well with no bleeding
Objective Data
-
Vital Signs
Temp Pulse Resp BP Pulse Ox
97.6 F 60 18 122/58 96
10/17/23 15:56 10/17/23 15:56 10/17/23 15:56 10/17/23 15:56 10/17/23 15:56
Intake & Output
10/16/23 10/17/23 07
06:59 06:59 06:59
Intake:
Oral fluids 240 / 240 720 / 720 420 / 420
IV fluids (Total) 840 / 840 910 / 910
Normosol 100 / 100
Output:
Urine, Voided 400 / 400 500 / 500
Other:
Number of approximated MODERATE 2 3
amounts of urine
Number of approximated LARGE 1
amounts of urine
Lab Results
10/16/23 06:24
10/13/23 05:36
PT 13.6 Sec (11.4-14.6) 10/14/23 12:14
INR 1.04 10/14/23 12:14
Calcium 8.9 mg/dl (8.4-10.2) 10/13/23 05:36
[2023-10-17] MEDS: SENOKOT 8.59999999999999964 MG PO (21:43)
[2023-10-17] MEDS: PEPCID 40 MG PO (21:43)
[2023-10-17] MEDS: DESYREL 100 MG PO (21:43)
[2023-10-18] MEDS: TORADOL 15 MG IV ×2 (02:08→08:08)
[2023-10-18 07:20] VITALS: BP 107/51
[2023-10-18] MEDS: ZESTRIL 5 MG PO (07:52)
[2023-10-18] MEDS: FOLVITE 1 MG PO (07:52)
[2023-10-18] MEDS: PROTONIX 40 MG PO (07:52)
[2023-10-18] MEDS: VITAMIN B1 100 MG PO (07:52)
[2023-10-18] MEDS: MIRALAX 17 GRAMS PO (07:52)
[2023-10-18] MEDS: COLACE 100 MG PO (07:52)
[2023-10-18] MEDS: LOPRESSOR 25 MG PO (07:52)
[2023-10-18] MEDS: LEXAPRO 20 MG PO (07:52)
[2023-10-18] MEDS: ANCEF 5 IV (07:55)
[2023-10-18] MEDS: ANESTHETIC LOZENGE 1 LOZENGE PO (07:59)
[2023-10-18 08:10] LABS: Hematocrit 23.6 % (39.0-52.0); Hemoglobin 7.6 g/dL (13.0-18.0); Mean Corp Hgb Conc. 32.2 g/dL (33.0-37.0); Mean Corpuscular Hgb 32.5 pg (27.0-31.0); Mean Corpuscular Volume 100.9 fL (80.0-94.0); Mean Platelet Volume 10.2 fL (7.4-10.4); Platelet Count 245 10^3/uL (130-400); Red Blood Cell Count 2.34 10^6/uL (4.70-6.10); Red Cell Dist. Width 14.6 % (11.5-14.5)
[2023-10-18 08:35] LABS: ALT (SGPT) 11 U/L (0-50); AST (SGOT) 22 U/L (17-59); Albumin 2.8 g/dl (3.5-5.0); Alkaline Phosphatase 98 U/L (38-126); Blood Urea Nitrogen 17 mg/dl (9-20); Calcium 8.8 mg/dl (8.4-10.2); Carbon Dioxide 24 mmol/L (22-30); Chloride 107 mmol/L (98-107); Estimated Creatinine Clearance 83 ml/min; Glucose 95 mg/dl (70-99); Potassium 4.2 mmol/L (3.5-5.1); Sodium 138 mmol/L (135-145); Total Bilirubin 0.2 mg/dl (0.2-1.3); Total Protein 5.1 g/dl (6.3-8.2); eGFR > 60.00
[2023-10-18 12:33] VITALS: BP 134/61
--- NOTE | 2023-10-18 13:46 | W.PN.ENT ---
Today's Communication
-
seen at bedside
Impression / Plan
-
Doing well.
Packing removed
Discharge home
Subjective Data
-
The patient is doing very well with no bleeding
Objective Data
-
Vital Signs
Temp Pulse Resp BP Pulse Ox
98.2 F 64 18 107/51 96
10/18/23 07:20 10/18/23 07:52 10/18/23 07:20 10/18/23 07:52 10/18/23 08:52
Intake & Output
10/17/23 10/18/23 10/19/23
06:59 06:59 06:59
Intake:
Oral fluids 720 / 720 420 / 420
IV fluids (Total) 910 / 910
IV piggybacks 110 / 110
Output:
Urine, Voided 500 / 500
Other:
Number of approximated MODERATE 3
amounts of urine
Lab Results
10/18/23 07:46
10/18/23 07:46
PT 13.6 Sec (11.4-14.6) 10/14/23 12:14
INR 1.04 10/14/23 12:14
Calcium 8.8 mg/dl (8.4-10.2) 10/18/23 07:46
Total Bilirubin 0.2 mg/dl (0.2-1.3) 10/18/23 07:46
AST 22 U/L (17-59) 10/18/23 07:46
ALT 11 U/L (0-50) 10/18/23 07:46
Alkaline Phosphatase 98 U/L (38-126) 10/18/23 07:46
Physical Exam
-
no active bleeding
Merocel sponge in place
Chest: Clear
Respiratory: Clear
Data Reviewed
-
Radiology Results: Report Reviewed
--- NOTE | 2023-10-18 14:04 | W.DS.TRANS ---
DC Summary - [employer]
-
Discharge Instructions:
Discharge Diagnosis/Procedures Epistaxis
Diet No restrictions
Activity No strenuous activity
Additional Activity avoid blowing nose
Bathing Restrictions None
Wound Care use saline nasal spray several times a day
Instructions:
Stand-Alone Forms:
Changes to Home Medications: Yes
Discharge Medications:
DC Medications w/original date entered in Virtual 3-D Display for Smartphones
escitalopram oxalate 20 mg tablet 20 mg PO DAILY Depression 10/19/21
trazodone 100 mg tablet 100 mg PO HS Sleep 10/19/21
lisinopril 5 mg tablet 5 mg PO DAILY #30 tabs 10/23/21
atorvastatin 80 mg tablet 80 mg PO QPM High Cholesterol 12/17/21
multivitamin 1 tab PO QPM Supplement 12/17/21
omeprazole 40 mg capsule,delayed release 40 mg PO DAILYPRN PRN GI issues 12/17/21
aspirin 81 mg chewable tablet 81 mg PO DAILY Blood Clot Prevention/Tx 10/12/23
cholecalciferol (vitamin D3) 25 mcg (1,000 unit) tablet (Vitamin D3) 25 mcg PO DAILY Supplement 10/12/23
famotidine 40 mg tablet (Pepcid) 40 mg PO HS Gastrointestinal Issue 10/12/23
metoprolol tartrate 25 mg tablet 25 mg PO BID Blood Pressure 10/12/23
pantoprazole 40 mg tablet,delayed release (Protonix) 40 mg PO DAILY Gastrointestinal Issue 10/12/23
tadalafil 20 mg tablet 20 mg PO DAILYPRN PRN ed 10/12/23
vitamins A,C,W-kltf-zsmpov 2,148 mcg-113 mg-45 mg-17.4 mg tablet (PreserVision AREDS) 1 tab PO BID Supplement 10/12/23
apixaban 5 mg tablet (Eliquis) 5 mg PO BID #180 tabs 10/18/23
Home Medication Changes
hold Eliquis until 10/22/2023
Pending Results: No
--- NOTE | 2023-10-18 15:24 | CM ---
MD entered order for discharge today.
Spoke with pt and . Pt said he was ready for dc.
Offered VN yesterday he had declined.
PLAN Home no VN need
== END 2023-10-18 14:42 | disposition home or self-care (01) | DRG 151 ==
LOC: 4 EAST ACU 00:16
PROVIDERS: Emergency Medicine; Internal Medicine; Otolaryngology; ADMITTING PHYSICIAN Internal Medicine; ATTENDING PHYSICIAN Internal Medicine; EMERGENCY PHYSICIAN Emergency Medicine; FAMILY PHYSICIAN Internal Medicine
PROC: 093K8ZZ Control Bleeding in Nasal Mucosa and Soft Tissue, Via Natural or Artificial Opening Endoscopic (ICD-10-PCS; 2023-10-14)
DX: R04.0 Epistaxis (principal); D62 Acute posthemorrhagic anemia; D68.32 Hemorrhagic disorder due to extrinsic circulating anticoagulants; I48.0 Paroxysmal atrial fibrillation; I10 Essential (primary) hypertension; T45.515A Adverse effect of anticoagulants, initial encounter; K21.9 Gastro-esophageal reflux disease without esophagitis; F32.9 Major depressive disorder, single episode, unspecified; G62.9 Polyneuropathy, unspecified; D72.828 Other elevated white blood cell count; K59.00 Constipation, unspecified; F43.10 Post-traumatic stress disorder, unspecified; F10.20 Alcohol dependence, uncomplicated; Z87.891 Personal history of nicotine dependence; Z79.1 Long term (current) use of non-steroidal anti-inflammatories (NSAID); Z88.6 Allergy status to analgesic agent; Z88.5 Allergy status to narcotic agent; Z79.899 Other long term (current) drug therapy
CPT/HCPCS: 74019; 80048; 80053; 82728; 82977; 83540; 83550; 85014; 85018; 85025; 85027; 85610; 86850; 86900; 86901; 96361; 96374; 96375; 97116; 97162; 97166; 99285; J2916

== ENCOUNTER → 2024-01-04 10:37 | Outpatient (REF) | payer MEDICARE, OTHER, SELFPAY ==
[2024-01-04 12:43] LABS: HDL Cholesterol 42 mg/dl; LDL Cholesterol, Calculated 73 mg/dl; Total Cholesterol 181 mg/dl (50-199); Triglyceride 332 mg/dl (10-149); Very Low Density Lipoprotein 66 mg/dl (0-30)
== END ==
LOC: REG 10:37
PROVIDERS: ATTENDING PHYSICIAN Nurse Practitioner; FAMILY PHYSICIAN Internal Medicine
DX: E78.5 Hyperlipidemia, unspecified (principal)
CPT/HCPCS: 36415; 80061

== ENCOUNTER → 2024-04-04 14:34 | Outpatient (REF) | payer MEDICARE, OTHER, SELFPAY | LOC: HWRCS 14:34 | PROVIDERS: ATTENDING PHYSICIAN Internal Medicine Cardiovascular Disease; FAMILY PHYSICIAN Internal Medicine | DX: I48.0 Paroxysmal atrial fibrillation (principal); R42 Dizziness and giddiness; I10 Essential (primary) hypertension; E78.5 Hyperlipidemia, unspecified | CPT/HCPCS: 93306 ==

== ENCOUNTER 2024-09-13 16:52 | Emergency (ER) | payer MEDICARE, OTHER, SELFPAY ==
[2024-09-13 16:55] VITALS: BP 152/71
--- NOTE | 2024-09-13 18:58 | ED.SKININJ ---
HPI-Injury
General
Chief Complaint: Skin Problem
Source: patient
Exam Limitations: none
Time Seen by Provider: 09/13/24 18:57
Nursing documentation reviewed up to this point in time: agreed with
History of Present Illness-Injury
Initial Injury comments:
79-year-old male with history of A-fib on Eliquis, HTN presents for rash on both arms, the rash on the right arm is painful.
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 He denies fever or chills. He has had MRSA different areas of his skin in the past
Past History
Past History
ED Past Medical History: Arrthythmia (Atrial fibrillation diagnosed in July 2019), CAD and HTN
ED Past Surgical History: Appendectomy and Other
Social History
Tobacco: Non-smoker
Alcohol: None
Drug: None
Personal:
Living: with family
Employment: Not employed
Family History
Family History: Hypertension
Review of Systems
Review of Systems
Allergies reviewed?: Yes
All Other Systems: ROS reviewed and negative except as documented in HPI and ROS
Constitutional: Denies fever
Skin: Reports other (Infected skin rash right arm)
Phy Exam
Physical Exam
Physical Exam:
GENERAL: No acute distress. A&Ox3.
CONSTITUTIONAL: Afebrile. Patient is stable starting Eliquis
RESPIRATORY: Regular respirations, nonlabored, lungs clear.
CARDIOVASCULAR: Regular rate and rhythm, no murmurs, no rubs.
MUSCULOSKELETAL: Moves with ease. Well perfused.
SKIN: Warm, dry, pink. Patient has lesions, various sizes, none more than 5 mm round on both arms, 1 lesion mid lower back with scab on it. All the lesions on the left arm are mild and appear to be healing well. The lesions on the right arm
lateral aspect of elbow and surrounding skin are slightly raised, have scabs on them, tiny amount of serous drainage from one of them, there is a 11 x 10 cm area of erythema surrounding them. No lymphangitis. No significant swelling. Distal
neurovascular intact.
PSYCH: Normal mood and affect. Well kept, interactive and appropriate
NEUROLOGIC: Awake, alert and oriented. No focal neurological deficits
Course
Vital Signs
Initial and Last Documented VS:
Initial Vital Signs
Temp Pulse Resp BP Pulse Ox
97.7 F 78 16 152/71 96
09/13/24 16:55 09/13/24 16:55 09/13/24 16:55 09/13/24 16:55 09/13/24 16:55
Last Documented Vital Signs
Temp Pulse Resp BP Pulse Ox
97.7 F 83 18 155/89 98
09/13/24 16:55 09/13/24 19:32 09/13/24 19:32 09/13/24 19:32 09/13/24 19:32
MDM/Problems Addressed
Differential Diagnosis Includes:
Cellulitis, MRSA
MDM/Problems Addressed:
79-year-old male with history of A-fib on Eliquis, HTN presents for rash on both arms, the rash on the right arm is painful.
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 He denies fever or chills. He has had MRSA different areas of his skin in the past
Afebrile.
The lesions on the right arm appear mildly infected with surrounding cellulitis.
No systemic infectious signs
Prescription sent to his pharmacy for Bactrim and Keflex and mupirocin ointment
*Critical Care Note
Total Time (30-74mins, 75-104mins- exclusive of procedures): Not Applicable
ED Attending Note
-
Portions of this chart may have been created with voice recognition software.� Occasional wrong word or��sound alike� substitutions may have occurred due to the inherent limitations of voice recognition software.
Discharge Plan
Departure
Patient Disposition: Home (Routine Discharge)
Date of Disposition: 09/13/24
Time of Disposition: 19:25
Patient with high blood pressure during this ER visit?: No
Condition: Good
Discharge Problem:
Cellulitis of right upper extremity, Infected lesions right arm
Instructions: Methicillin-resistant Staphylococcus aureus (MRSA), Cellulitis (Skin Infection), Adult (DC)
Prescriptions:
New
doxycycline hyclate 100 mg capsule
100 mg PO BID Qty: 20 0RF
mupirocin [Centany] 2 % ointment
1 applic topical TID Qty: 22 0RF
No Action
trazodone 100 mg Tablet
100 mg PO HS
escitalopram oxalate 20 mg Tablet
20 mg PO DAILY
lisinopril 5 mg tablet
5 mg PO DAILY Qty: 30 0RF
atorvastatin 80 mg Tablet
80 mg PO QPM
multivitamin Tablet
1 tab PO QPM
omeprazole 40 MG capsule,delayed release(DR/EC)
40 mg PO DAILYPRN PRN (Reason: GI issues)
metoprolol tartrate 25 mg Tablet
25 mg PO BID
tadalafil 20 mg Tablet
20 mg PO DAILYPRN PRN (Reason: ed)
famotidine [Pepcid] 40 mg Tablet
40 mg PO HS
pantoprazole [Protonix] 40 mg Tablet,Delayed Release (Dr/Ec)
40 mg PO DAILY
cholecalciferol (vitamin D3) [Vitamin D3] 25 mcg (1,000 unit) Tablet
25 mcg PO DAILY
aspirin 81 mg Tablet,Chewable
81 mg PO DAILY
PreserVision AREDS 2,148 mcg-113 mg-45 mg-17.4mg Tablet
1 tab PO BID
Eliquis 5 MG tablet
5 mg PO BID Qty: 180 1RF
Rx Instructions:
hold until 10/22/2023
Referrals:
NONE,* [Family Provider, Internal Medicine]
Activity Restrictions/Additional Instructions:
As we discussed, keep your appointment next week with the [facility] and have them recheck your rash.
Keep it clean with soap and water daily, avoid picking or scratching it
I sent a prescription to your pharmacy for doxycycline antibiotic to take twice a day for 10 days
I also sent a prescription to your pharmacy for mupirocin ointment to apply 3 times a day for 10 days
Interventions
Interventions:
*Risk Screen - Suicide Last Done: 09/13/24 16:55
*General Assessment Last Done: 09/13/24 16:55
*Neglect/Abuse Screening Last Done: 09/13/24 16:55
*ED- Fall Risk Assessment Last Done: 09/13/24 19:42
*ED COVID-19 Vaccine History Last Done: 09/13/24 19:19
*Nursing Disposition Last Done: 09/13/24 19:42
ED-Skin Assessment Last Done: 09/13/24 19:42
Discharge Date and Time
Discharge Date/Time: 09/13/24 19:44
Print Language: BENGALI
[2024-09-13 19:32] VITALS: BP 155/89
== END 2024-09-13 19:44 | disposition home or self-care (01) ==
LOC: EMR 16:52
PROVIDERS: EMERGENCY PHYSICIAN Student in an Organized Health Care Education/Training Program
DX: L03.113 Cellulitis of right upper limb (principal); I48.91 Unspecified atrial fibrillation; I10 Essential (primary) hypertension; I25.10 Atherosclerotic heart disease of native coronary artery without angina pectoris; Z79.01 Long term (current) use of anticoagulants; Z86.14 Personal history of Methicillin resistant Staphylococcus aureus infection
CPT/HCPCS: 99283

== ENCOUNTER 2024-09-26 08:33 | Emergency (ER) | payer MEDICARE, OTHER, SELFPAY ==
[2024-09-26 08:55] VITALS: BP 149/100
[2024-09-26 09:09] VITALS: BMI 24.6
--- NOTE | 2024-09-26 09:14 | ED.GENMED ---
History of Present Illness
General
Chief Complaint: Oral/Mouth Problem
Source: patient
Exam Limitations: none
Time Seen by Provider: 09/26/24 09:05
History of Present Illness
History of Present Illness:
See MDM
Past History
Past History
ED Past Medical History: Arrthythmia (Atrial fibrillation diagnosed in July 2019), CAD and HTN
ED Past Surgical History: Appendectomy and Other
Social History
Tobacco: Non-smoker
Alcohol: None
Drug: None
Personal:
Living: with family
Employment: Not employed
Family History
Family History: Hypertension
Phy Exam
Physical Exam
Physical Exam:
See MDM
Course
Orders/Labs/Results
Orders:
Orders
09/26/24 10:00
Lidocaine Visc/Maalox/Benadryl [Magic or Miracle Mouthwash] 90 ml PO ONCE ONE
09/26/24 10:01
Oxycodone/Acetaminophen [Percocet 5/325] 1 tablet PO NOW STA
Vital Signs
Initial and Last Documented VS:
Initial Vital Signs
Temp Pulse Resp BP Pulse Ox
98.8 F 62 16 149/100 96
09/26/24 08:55 09/26/24 08:55 09/26/24 08:55 09/26/24 08:55 09/26/24 08:55
Last Documented Vital Signs
Temp Pulse Resp BP Pulse Ox
98.8 F 62 16 164/75 96
09/26/24 08:55 09/26/24 09:56 09/26/24 09:56 09/26/24 09:56 09/26/24 08:55
MDM/Problems Addressed
Differential Diagnosis Includes:
Note:
CHIEF COMPLAINT(S)
Sores in the mouth causing severe pain and inability to eat for about a week.
HISTORY OF PRESENT ILLNESS
The patient is a 79-year-old male who presents with painful oral lesions that have persisted for approximately one week. According to the patient, the oral sores cause a burning and stinging sensation so severe that he is unable to eat. Currently,
the patient reports he has not eaten much since Wednesday, affecting his nutrition. The patient had previous oral antibiotics, doxycycline, prescribed during a recent visit to address similar lesions on the arms, back, and legs, which have since
improved. The patient believes the antibiotics affected his health negatively, per his spouses suggestion. The pain from the oral lesions is exacerbated by the lack of teeth, which makes eating difficult. The patient notes a history of tooth
extractions due to a previous injury and is awaiting dental implants.
CHRONIC MEDICAL CONDITIONS SIGNIFICANTLY AFFECTING CARE
The patient is 100% disabled and had teeth extractions secondary to an injury.
PHYSICAL EXAM:
General: Well appearing and non-toxic
HEENT: Poor dentition. Ulcerations noted to roof and signs of mouth. Uvula midline. No exudate
Neck: appears supple
CV: No evidence of cyanosis
Resp: No accessory muscle use
Abd: Non-distended
Extremities: No deformities
Neuro: alert
Psych: Normal affect
Skin: Resolving rash to forearms
PLAN
1. Prescribe 'Magic Mouthwash' to numb the mouth and alleviate pain associated with the oral sores.
2. Monitor symptom progression and provide reassurance that the oral lesions may resolve as they are possibly self-limiting in nature.
DIFFERENTIAL DIAGNOSIS
The differential diagnosis includes, in no particular order and is not limited to:
1. Viral infection (such as [id number]-[id number] disease)
2. Medication-induced oral lesions
3. Aphthous ulcers
4. Herpes simplex virus
5. Fungal infection ([place])
6. Erythema multiforme
7. Oral lichen planus
8. Autoimmune condition (such as pemphigus vulgaris)
9. Nutritional deficiency (e.g., vitamin B12, folate)
10. Trauma or irritation from dental issues
CARE-UPDATE
09/26/24 - 10:29
The patient reports that the medication provides some relief, but they describe a sensation of pressure on the head, torin to a vice. The sore throat persists, though the patient was able to consume apple sauce, indicating some improvement in their
ability to eat. A prescription for magic mouthwash will be handwritten for the pharmacy, as there is no electronic option available, and additional pain medication will be prescribed. The patient currently uses an approximate dosage of five
milliliters (a teaspoon) for the pain relief, deviating from the usual post-meal prescription, to be used as necessary.
Disposition:
SUMMARY OF ENCOUNTER
The patient is a 79-year-old male who presented due to painful oral lesions that have persisted for approximately one week. The lesions caused a burning and stinging sensation severe enough to prevent the patient from eating properly, affecting his
nutrition. The healthcare team initiated treatment with 'Magic Mouthwash' for symptomatic relief and additional pain medication. This approach was chosen to provide immediate discomfort alleviation while avoiding additional antibiotics, considering
the potential causes of the lesions, such as a viral infection or medication-induced reaction.
DISPOSITION
The patient feels comfortable going home and expressed understanding of discharge instructions, including return precautions.
PLAN
The management plan includes the prescription of 'Magic Mouthwash' to numb the mouth and alleviate pain associated with the oral sores. The patient is also advised to monitor symptom progression and follow up with both his primary care physician and
dentist.
PATIENT EDUCATION AND COUNSELING
The patient was advised on the use of 'Magic Mouthwash' and pain medication to manage symptoms. Education on monitoring symptoms and understanding discharge instructions, including follow-up with primary care and the dentist, was provided.
FOLLOW-UP INSTRUCTIONS
The patient is advised to follow up with his primary care physician and dentist to continue monitoring and management of his condition.
MEDICATION RECONCILIATION
- Magic Mouthwash: Prescribed for numbing and pain relief.
- Additional pain medication: Prescribed to alleviate discomfort from oral lesions.
MEDICAL DECISION MAKING
Number and Complexity of Problems Addressed: The patient presented with acute oral lesions and chronic dental issues impacting his nutrition and pain levels. The healthcare team evaluated possible causes, considering a wide differential diagnosis to
ensure appropriate management.
Data: Based on the history and examination, symptomatic relief and monitoring were prioritized.
Risk: Social determinants of health such as the patients dental status were considered when forming the management and follow-up plan. The decision to manage symptoms conservatively with 'Magic Mouthwash' was made to minimize antibiotic use while
addressing pain.
*Critical Care Note
Total Time (30-74mins, 75-104mins- exclusive of procedures): Not Applicable
ED Attending Note
-
Portions of this chart may have been created with voice recognition software.� Occasional wrong word or��sound alike� substitutions may have occurred due to the inherent limitations of voice recognition software.
Discharge Plan
Departure
Patient Disposition: Home (Routine Discharge)
Date of Disposition: 09/26/24
Time of Disposition: 10:31
Patient with high blood pressure during this ER visit?: Yes
Discharge Problem:
Mouth ulcers
Instructions: Mouth sores
Prescriptions:
New
oxycodone 5 mg tablet
5 mg PO Q8H PRN (Reason: Pain) Qty: 14 0RF
No Action
trazodone 100 mg Tablet
100 mg PO HS
escitalopram oxalate 20 mg Tablet
20 mg PO DAILY
lisinopril 5 mg tablet
5 mg PO DAILY Qty: 30 0RF
atorvastatin 80 mg Tablet
80 mg PO QPM
multivitamin Tablet
1 tab PO QPM
omeprazole 40 MG capsule,delayed release(DR/EC)
40 mg PO DAILYPRN PRN (Reason: GI issues)
metoprolol tartrate 25 mg Tablet
25 mg PO BID
tadalafil 20 mg Tablet
20 mg PO DAILYPRN PRN (Reason: ed)
famotidine [Pepcid] 40 mg Tablet
40 mg PO HS
pantoprazole [Protonix] 40 mg Tablet,Delayed Release (Dr/Ec)
40 mg PO DAILY
cholecalciferol (vitamin D3) [Vitamin D3] 25 mcg (1,000 unit) Tablet
25 mcg PO DAILY
aspirin 81 mg Tablet,Chewable
81 mg PO DAILY
PreserVision AREDS 2,148 mcg-113 mg-45 mg-17.4mg Tablet
1 tab PO BID
Eliquis 5 MG tablet
5 mg PO BID Qty: 180 1RF
Rx Instructions:
hold until 10/22/2023
doxycycline hyclate 100 mg capsule
100 mg PO BID Qty: 20 0RF
mupirocin [Centany] 2 % ointment
1 applic topical TID Qty: 22 0RF
Referrals:
UNKNOWN - PT NOT,INTERVIEWE [Family Provider]
Activity Restrictions/Additional Instructions:
Please return for any worsening symptoms.
You may return at any time if you have further concerns.
Please follow up with your doctor and dentist at the first available appointment, preferably this week.
You were given a prescription for narcotics. If you require this pain medicine, please take a daily [id number] stool softener to avoid constipation.
Thank you for choosing [facility].
Interventions
Interventions:
*Risk Screen - Suicide Last Done: 09/26/24 08:55
*General Assessment Last Done: 09/26/24 08:55
*Neglect/Abuse Screening Last Done: 09/26/24 08:55
*ED- Fall Risk Assessment Last Done: 09/26/24 09:11
*ED COVID-19 Vaccine History Last Done: 09/26/24 09:11
*Nursing Disposition Last Done: 09/26/24 10:53
Discharge Date and Time
Discharge Date/Time: 09/26/24 10:53
Print Language: SWEDISH
[2024-09-26 09:15] VITALS: BMI 24.6
[2024-09-26] MEDS: MAGIC OR MIRACLE MOUTHWASH 90 ML PO (09:52)
[2024-09-26 09:56] VITALS: BP 164/75
[2024-09-26] MEDS: PERCOCET 5/325 1 TABLET PO (10:06)
== END 2024-09-26 10:53 | disposition home or self-care (01) ==
LOC: EMR 08:33
PROVIDERS: EMERGENCY PHYSICIAN Student in an Organized Health Care Education/Training Program
DX: K12.1 Other forms of stomatitis (principal); I48.91 Unspecified atrial fibrillation; I25.10 Atherosclerotic heart disease of native coronary artery without angina pectoris; I10 Essential (primary) hypertension; Z82.49 Family history of ischemic heart disease and other diseases of the circulatory system; Z90.49 Acquired absence of other specified parts of digestive tract
CPT/HCPCS: 99282

== ENCOUNTER → 2024-10-17 13:06 | Outpatient (REF) | payer MEDICARE, OTHER, SELFPAY | LOC: SDSPAT 13:06 | PROVIDERS: ATTENDING PHYSICIAN Internal Medicine Cardiovascular Disease; REFERRING PHYSICIAN Internal Medicine Cardiovascular Disease | DX: I48.0 Paroxysmal atrial fibrillation (principal); Z95.818 Presence of other cardiac implants and grafts | CPT/HCPCS: 93005 ==

== ENCOUNTER 2024-10-27 12:52 | Day surgery (SDC) | payer MEDICARE, OTHER, SELFPAY ==
[2024-10-17 13:58] VITALS: BMI 23.2
[2024-10-27] VITALS (9 sets, daily range): BP systolic 151–180; BP diastolic 70–93
--- NOTE | 2024-10-27 17:51 | ITS.CL.IMPLP ---
Emt B - Implant Loop
Implant Loop
Procedure Report:
Date of Procedure: October 27, 2024.
Procedure: Insertable Loop Recorder Explant.
Indication: Loop at end of service.
Performing physician: Luigi Romero MD, [facility].
Explant: [employer]; Jot Dx, Model# [id number]; Serial# [id number] (device was implanted on 08/07/2022.
Technique: The patient was prepped and draped in the usual fashion. A time-out was performed. No intravenous sedation was administered. Local anesthetic was applied to the left pre-pectoral subcutaneous tissue. An approximate 1.5 cm incision was
made over the loop monitor site. Blunt dissection to the capsule was performed and the device was explanted. Hemostasis was excellent. The pocket was irrigated with saline. The skin was closed with 4-0 Monocryl and steri-strips. The estimated blood
loss was less than 0.5 ml. There were no complications. No fluoroscopy.
Conclusion: Uncomplicated [employer] insertable loop monitor explant.
Recommendation: Routine incision care.
cc: Kevyn Hilario MD and Kavitha Anders MD.
== END 2024-10-27 18:46 | disposition home or self-care (01) ==
LOC: CATH 12:52
PROVIDERS: ATTENDING PHYSICIAN Internal Medicine Cardiovascular Disease
DX: Z09 Encounter for follow-up examination after completed treatment for conditions other than malignant neoplasm (principal); I48.0 Paroxysmal atrial fibrillation; I10 Essential (primary) hypertension; E78.5 Hyperlipidemia, unspecified; G47.33 Obstructive sleep apnea (adult) (pediatric); M19.90 Unspecified osteoarthritis, unspecified site; K21.9 Gastro-esophageal reflux disease without esophagitis; F32.A Depression, unspecified; F41.9 Anxiety disorder, unspecified; G47.00 Insomnia, unspecified; Z87.891 Personal history of nicotine dependence; Z79.01 Long term (current) use of anticoagulants
CPT/HCPCS: 33286

== ENCOUNTER 2025-03-04 18:22 | Inpatient (IN) | payer MEDICARE, OTHER, SELFPAY ==
[2025-03-04 12:52] VITALS: BP 159/81
--- NOTE | 2025-03-04 15:26 | ED.GENMED ---
History of Present Illness
<Yesenia Lucero VICE PRESIDENT OF CONSULTING SERVICES - Last Filed: 03/04/25 19:30>
General
Chief Complaint: Nose Bleed
Source: patient
Exam Limitations: none
Time Seen by Provider: 03/04/25 14:41
Nursing documentation reviewed up to this point in time: agreed with
History of Present Illness
History of Present Illness:
79 yo male w History of recurrent epistaxis, acute blood loss anemia, atrial fibrillation on Eliquis. Presents with significant bleeding from right nostril since this a.m.
Pt states about 4 months ago, ENT did 3-4 'procedures' in his nose, doesn't know what they did. States since then, hard pieces of 'scab or something' has been breaking off and going into his mouth, when he picks them out of his mouth the look like
'a piece of pumpkin seed' Denies any significant bleeding until this a.m. and he couldn't get it stopped. Feels blood going down back of throat.
He was admitted 10/14/2023 to 10/18/2023 requiring a nasal balloon catheter insertion. He was taken to the OR on the 09/2723 underwent cautery had a repeat OR trip on the but no cautery was required. On 11/15 hemoglobin down to 7.6 although did
not require transfusion. Eliquis was held for 6 days.
Past History
<Yesenia Lucero, VICE PRESIDENT OF CONSULTING SERVICES - Last Filed: 03/04/25 19:30>
Past History
ED Past Medical History: Arrthythmia (Atrial fibrillation diagnosed in July 2019, on Eliquis), CAD and HTN
ED Past Surgical History: Appendectomy and Other
Social History
Tobacco: Non-smoker
Alcohol: None
Drug: None
Personal:
Living: with family
Employment: Not employed
Family History
Family History: Hypertension
Review of Systems
<Yesenia Lucero VICE PRESIDENT OF CONSULTING SERVICES - Last Filed: 03/04/25 19:30>
Review of Systems
Allergies reviewed?: Yes
All Other Systems: ROS reviewed and negative except as documented in HPI and ROS
Phy Exam
<Yesenia Lucero, VICE PRESIDENT OF CONSULTING SERVICES - Last Filed: 03/04/25 19:30>
Physical Exam
Physical Exam:
GENERAL: No acute distress. A&Ox3.
CONSTITUTIONAL: Afebrile.
EYES: clear, conjunctivae normal
ENMT: moist mucus membranes, Pharynx with blood trickling down. Pt spitting out large amounts of blood with no large clots (looks like a cup in basin).
RESPIRATORY: Regular respirations, nonlabored, lungs clear.
CARDIOVASCULAR: Regular rate and rhythm, no murmurs, no rubs.
GI: Soft, nontender, normal BS
MUSCULOSKELETAL: Moves with ease. Well perfused.
SKIN: Warm, dry, pink
PSYCH: Normal mood and affect. Well kept, interactive and appropriate
NEUROLOGIC: Awake, alert and oriented. No focal neurological deficits
Course
<Yesenia Lucero, VICE PRESIDENT OF CONSULTING SERVICES - Last Filed: 03/04/25 19:30>
Orders/Labs/Results
Orders:
Orders
03/04/25 Dinner
Regular
03/04/25 15:49
Type+Screen Urgent
Complete Blood Count/With Diff Urgent
PTT Urgent
Prothrombin Time Urgent
03/04/25 16:01
Acetaminophen [Tylenol] 1,000 mg PO NOW STA
03/04/25 16:27
Comprehensive Metabolic Panel Urgent
03/04/25 16:34
Consult ENT [ENT CONSULT] Urgent
Consulting Provider: Kevyn Luther
Was physician already notified: Yes
Reason for Consult: posterior epistaxis
03/04/25 17:01
Admit/Transfer Patient As Directed
Co-Sign Provider:
Level of Care: Inpatient admission
Assign to:: Telemetry
Physician / Group: xavier meyer
Diagnosis: Right nares posterior epistaxis on eliquis
Reason for Telemetry: Arrhythmia
Date to Stop Telemetry: 03/07/25
Time to Stop Telemetry: 11:00
Reason for Hospitalization: Right nares posterior epistaxis on eliquis
Expected length of stay greater than two midnights?: Yes
ELOS- Estimated Length of Stay in days: 3
I certify the patient meets the requirements for IP care: Yes
03/04/25 17:02
Code Status As Directed
Resuscitation Status: Full Code
03/04/25 17:06
PRN Pain Medication Management As Directed
May give lesser potent ordered pain med per pt: Yes
preference::
Protocol:: Medication orders for pain may be administered in a
manner that supports deferring to patient preference
when the pt is:
- Requesting an ordered lesser potent pain medication.
Least to most potent pain medications are defined
as: acetaminophen < NSAID < tramadol < opioids
(morphine, oxycodone, hydromorphone).
- Requesting a lesser dose of the same medication IF
ORDERED.
- Requesting a less intrusive route of administration
if both routes are prescribed by the provider (PO <
IV).
03/04/25 17:07
CeFAZolin 1 GRAM [Ancef] 1 gram in 5 ml IV NOW
03/04/25 18:47
H&H Q6H
Atorvastatin [Lipitor] 80 mg PO QPM
Cholecalciferol (Vitamin D3) [VITAMIN D3 (cholecalciferol)] 25 mcg PO QPM
Escitalopram Oxalate [Lexapro] 20 mg PO QPM
Lisinopril [Zestril] 5 mg PO QPM
Ondansetron Injectable [Zofran] 4 mg IV Q6HPRN PRN
03/04/25 18:47
Activity As Directed
Activity Level: As Tolerated
Pneumatic Compression Sleeves As Directed
Type: Knee high
Vital Signs As Directed
Frequency: Per unit guidelines
DX Deep Vein Thrombosis Video Routine
03/04/25 20:00
Acetaminophen [Tylenol] 650 mg PO Q4HPRN PRN
Metoprolol [Lopressor] 25 mg PO BID
Pantoprazole [Protonix] 40 mg PO DAILY PRN
Vit C/Vit E/Lutein/Min/[place]-3 [Ocuvite Softgel] 1 cap PO BID
03/04/25 22:00
Trazodone [Desyrel] 100 mg PO HS
03/05/25 00:47
H&H Q6H
03/05/25 02:00
CeFAZolin 1 GRAM [Ancef] 1 gram in 5 ml IV Q8H
03/05/25 06:00
Complete Blood Count/With Diff IN AM
Comprehensive Metabolic Panel IN AM
03/05/25 06:47
H&H Q6H
03/05/25 12:47
H&H Q6H
03/05/25 18:47
H&H Q6H
03/07/25 11:00
DC Protocol for Telemetry ONCE
Abnormal Lab Results
03/04/25 03/04/25
15:49 16:27
RBC 3.48 L 10^6/uL
(4.70-6.10)
Hgb 11.2 L g/dL
(13.0-18.0)
Hct 33.3 L %
(39.0-52.0)
MCV 95.7 H fL
(80.0-94.0)
MCH 32.2 H pg
(27.0-31.0)
RDW 14.6 H %
(11.5-14.5)
Abs Immat Gran (auto) 0.1 H 10^3/uL
(0-0.05)
Absolute Lymphs (auto) 3.9 H 10^3/uL
(1.2-3.4)
Absolute Monos (auto) 0.8 H 10^3/uL
(0.1-0.6)
Immature Gran % 0.6 H %
(0-0.5)
Sodium 134 L mmol/L
(135-145)
Glucose 125 H mg/dl
(70-99)
03/04/25 15:49
03/04/25 16:27
Vital Signs
Initial and Last Documented VS:
Initial Vital Signs
Temp Pulse Resp BP Pulse Ox
98 F 76 16 159/81 98
03/04/25 12:52 03/04/25 12:52 03/04/25 12:52 03/04/25 12:52 03/04/25 12:52
Last Documented Vital Signs
Temp Pulse Resp BP Pulse Ox
97.6 F 72 12 185/79 95
03/04/25 18:51 03/04/25 18:51 03/04/25 18:51 03/04/25 18:51 03/04/25 18:51
<Peterson Noonan, DO - Last Filed: 03/04/25 15:45>
Orders/Labs/Results
Orders:
Orders
03/04/25 Dinner
Regular
03/04/25 15:49
Type+Screen Urgent
Complete Blood Count/With Diff Urgent
PTT Urgent
Prothrombin Time Urgent
03/04/25 16:01
Acetaminophen [Tylenol] 1,000 mg PO NOW STA
03/04/25 16:27
Comprehensive Metabolic Panel Urgent
03/04/25 16:34
Consult ENT [ENT CONSULT] Urgent
Consulting Provider: Kevyn Luther
Was physician already notified: Yes
Reason for Consult: posterior epistaxis
03/04/25 17:01
Admit/Transfer Patient As Directed
Co-Sign Provider:
Level of Care: Inpatient admission
Assign to:: Telemetry
Physician / Group: xavier meyer
Diagnosis: Right nares posterior epistaxis on eliquis
Reason for Telemetry: Arrhythmia
Date to Stop Telemetry: 03/07/25
Time to Stop Telemetry: 11:00
Reason for Hospitalization: Right nares posterior epistaxis on eliquis
Expected length of stay greater than two midnights?: Yes
ELOS- Estimated Length of Stay in days: 3
I certify the patient meets the requirements for IP care: Yes
03/04/25 17:02
Code Status As Directed
Resuscitation Status: Full Code
03/04/25 17:06
PRN Pain Medication Management As Directed
May give lesser potent ordered pain med per pt: Yes
preference::
Protocol:: Medication orders for pain may be administered in a
manner that supports deferring to patient preference
when the pt is:
- Requesting an ordered lesser potent pain medication.
Least to most potent pain medications are defined
as: acetaminophen < NSAID < tramadol < opioids
(morphine, oxycodone, hydromorphone).
- Requesting a lesser dose of the same medication IF
ORDERED.
- Requesting a less intrusive route of administration
if both routes are prescribed by the provider (PO <
IV).
03/04/25 17:07
CeFAZolin 1 GRAM [Ancef] 1 gram in 5 ml IV NOW
03/04/25 18:47
H&H Q6H
Atorvastatin [Lipitor] 80 mg PO QPM
Cholecalciferol (Vitamin D3) [VITAMIN D3 (cholecalciferol)] 25 mcg PO QPM
Escitalopram Oxalate [Lexapro] 20 mg PO QPM
Lisinopril [Zestril] 5 mg PO QPM
Ondansetron Injectable [Zofran] 4 mg IV Q6HPRN PRN
03/04/25 18:47
Activity As Directed
Activity Level: As Tolerated
Pneumatic Compression Sleeves As Directed
Type: Knee high
Vital Signs As Directed
Frequency: Per unit guidelines
DX Deep Vein Thrombosis Video Routine
03/04/25 20:00
Acetaminophen [Tylenol] 650 mg PO Q4HPRN PRN
Metoprolol [Lopressor] 25 mg PO BID
Pantoprazole [Protonix] 40 mg PO DAILY PRN
Vit C/Vit E/Lutein/Min/[place]-3 [Ocuvite Softgel] 1 cap PO BID
03/04/25 22:00
Trazodone [Desyrel] 100 mg PO HS
03/05/25 00:47
H&H Q6H
03/05/25 02:00
CeFAZolin 1 GRAM [Ancef] 1 gram in 5 ml IV Q8H
03/05/25 06:00
Complete Blood Count/With Diff IN AM
Comprehensive Metabolic Panel IN AM
03/05/25 06:47
H&H Q6H
03/05/25 12:47
H&H Q6H
03/05/25 18:47
H&H Q6H
03/07/25 11:00
DC Protocol for Telemetry ONCE
Abnormal Lab Results
03/04/25 03/04/25
15:49 16:27
RBC 3.48 L 10^6/uL
(4.70-6.10)
Hgb 11.2 L g/dL
(13.0-18.0)
Hct 33.3 L %
(39.0-52.0)
MCV 95.7 H fL
(80.0-94.0)
MCH 32.2 H pg
(27.0-31.0)
RDW 14.6 H %
(11.5-14.5)
Abs Immat Gran (auto) 0.1 H 10^3/uL
(0-0.05)
Absolute Lymphs (auto) 3.9 H 10^3/uL
(1.2-3.4)
Absolute Monos (auto) 0.8 H 10^3/uL
(0.1-0.6)
Immature Gran % 0.6 H %
(0-0.5)
Sodium 134 L mmol/L
(135-145)
Glucose 125 H mg/dl
(70-99)
03/04/25 15:49
03/04/25 16:27
Vital Signs
Initial and Last Documented VS:
Initial Vital Signs
Temp Pulse Resp BP Pulse Ox
98 F 76 16 159/81 98
03/04/25 12:52 03/04/25 12:52 03/04/25 12:52 03/04/25 12:52 03/04/25 12:52
Last Documented Vital Signs
Temp Pulse Resp BP Pulse Ox
97.6 F 72 12 185/79 95
03/04/25 18:51 03/04/25 18:51 03/04/25 18:51 03/04/25 18:51 03/04/25 18:51
Procedures
<Peterson Noonan, DO - Last Filed: 03/04/25 15:45>
Nosebleed
Drug treatment: Lidocaine and Epinephrine
Treatment: Posterior balloon
Post treatment bleeding: none- good control
<Yesenia Lucero, VICE PRESIDENT OF CONSULTING SERVICES - Last Filed: 03/04/25 19:30>
MDM/Problems Addressed
MDM/Problems Addressed:
79 yo male w History of recurrent epistaxis, acute blood loss anemia, atrial fibrillation on Eliquis. Presents with significant bleeding from right nostril since this a.m.
Pt states about 4 months ago, ENT did 3-4 'procedures' in his nose, doesn't know what they did. States since then, hard pieces of 'scab or something' has been breaking off and going into his mouth, when he picks them out of his mouth the look
like 'a piece of pumpkin seed' Denies any significant bleeding until this a.m. and he couldn't get it stopped. Feels blood going down back of throat.
He was admitted 10/14/2023 to 10/18/2023 requiring a nasal balloon catheter insertion. He was taken to the OR on the 09/2723 underwent cautery had a repeat OR trip on the but no cautery was required. On 11/15 hemoglobin down to 7.6 although
did not require transfusion. Eliquis was held for 6 days.
Significant bleeding noted, VSS
Dr. Noonan in to examine and he placed a posterior packing in
4:00 p.m.
Bleeding well controlled with packing
Pt reports headache, Tylenol ordered
CBC: Hgb 11.2
CMP normal
4:30 PM:
CBC: Hemoglobin 11.2 No clinically significant abnormality
CMP: Pending
PT PTT within normal limits INR 1.10
Dx: posterior epistaxis
Hospitalist and ENT Dr. Luther notified of admission, ENT consult in.
<Yesenia Lucero VICE PRESIDENT OF CONSULTING SERVICES - Last Filed: 03/04/25 19:30>
*Pulse Oximetry
SaO2: 98
Oxygen Mode of Delivery: Room air
Patient hypoxic: no
*Critical Care Note
Total Time (30-74mins, 75-104mins- exclusive of procedures): Not Applicable
ED Attending Note
<Yesenia Lucero VICE PRESIDENT OF CONSULTING SERVICES - Last Filed: 03/04/25 19:30>
-
Portions of this chart may have been created with voice recognition software.� Occasional wrong word or��sound alike� substitutions may have occurred due to the inherent limitations of voice recognition software.
<Peterson Noonan, DO - Last Filed: 03/04/25 15:45>
ED Attending Note
Patient seen and examined by attending physician: Yes
ED Attending Note:
I have reviewed and agree with history and treatment plan by Brenna Lucero DNP. My exam revealed 79-year-old male with posterior epistaxis right nostril. I inserted posterior packing after treatment with lidocaine and epinephrine. Patient tolerated
procedure well and bleeding has been controlled at this point. Will admit to hospitalist and notify ENT.
Discharge Plan
Departure
Patient Disposition: Admit
Date of Disposition: 03/04/25
Time of Disposition: 16:31
Admit to: Med/Surg
Presentation/result/management discussed w/ accepting MD/DO: Hospitalist
Condition: Fair
Discharge Problem:
Acute posterior epistaxis
Interventions
Interventions:
*Risk Screen - Suicide Last Done: 03/04/25 12:53
*General Assessment Last Done: 03/04/25 15:00
*Neglect/Abuse Screening Last Done: 03/04/25 12:53
*ED- Fall Risk Assessment Last Done: 03/04/25 15:00
*ED COVID-19 Vaccine History Last Done: 03/04/25 15:00
*ED Influenza Vaccine History Last Done: 03/04/25 15:00
*Nursing Disposition Last Done: 03/04/25 18:50
ED-EENT Assessment Last Done: 03/04/25 15:00
Discharge Date and Time
Discharge Date/Time: 03/04/25 18:51
[2025-03-04 16:04] VITALS: BP 170/75
[2025-03-04 16:06] LABS: Hematocrit 33.3 % (39.0-52.0); Hemoglobin 11.2 g/dL (13.0-18.0); Mean Corp Hgb Conc. 33.6 g/dL (33.0-37.0); Mean Corpuscular Volume 95.7 fL (80.0-94.0); Nucleated Red Blood Cells % 0 % (-); Platelet Count 190 10^3/uL (130-400); Red Cell Dist. Width 14.6 % (11.5-14.5)
[2025-03-04 16:11] VITALS: BMI 23.7
[2025-03-04 16:15] LABS: INR 1.10; PT 14.5 Sec (11.4-14.6)
[2025-03-04 16:17] LABS: APTT 26.0 Sec (23.4-35.0)
[2025-03-04] MEDS: TYLENOL 1000 MG PO (16:18)
--- NOTE | 2025-03-04 16:43 | HPS.HSE ---
Addendum entered and electronically signed by Genie Rinaldi MD 03/04/25 17:51:
This is an addendum to the H&P written by Eliz Orosco on 03/04/2025. 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
79-year-old male past medical history of paroxysmal atrial fibrillation on Eliquis, CAD, hypertension, recurrent epistaxis, presenting with significant bleeding from right nostril since the morning.
He required admission in 2023 requiring nasal balloon catheter insertion. �He was taken to the OR at that time for cautery.
Vital signs unremarkable.
Labs show hemoglobin 11.2 from 7.6 previously.
Patient with posterior nasal bleeding from right nostril. �Nasal balloon placed. �No bleeding currently. �Hold Eliquis. �ENT consulted.
Original Note:
Family Physician
-
Family Physician: Kavitha Anders
Chief Complaint
-
Right nares bleeding
History of Present Illness
79-year-old male complaining of epistaxis from his right nostril since this a.m, but had some scant bleeding last night. He also complains of headache which improved with Tylenol in ER. He is on Eliquis for A-fib with history of recurrent
epistaxis and blood loss anemia. He had nasal balloon placed in right naris in ER he reports he had prior bleeding 4 months ago which required some cauterization by ENT 3-4 times. He reports some of the scab has been breaking off and going into
his mouth which he picks out. He denies picking at his nose, blowing nose, nasal trauma, fever, chills, chest pain, palpitations, cough, shortness of breath, abdominal pain, nausea, vomit, diarrhea, urinary symptoms. He was also admitted 10/13 to
10/18/2023 requiring nasal balloon insertion and OR for cautery he had hemoglobin trend down to 7.6 but was not transfused his Eliquis was held for 6 days at that time
The patient has past medical history of paroxysmal A-fib on Eliquis Dx July 2019, CAD, HTN, epistaxis recurrent, peripheral neuropathy, depression, alcohol use, PTSD, constipation, insomnia.
Medical History
Past Medical History
Past Medical History: Reports Other
Additional Past Medical History:
Paroxysmal Atrial Fibrillation
Alcohol Use Disorder
Hypertension
GERD
Major Depression
Peripheral Neuropathy
History of ZAC Requiring Temporary HD
Past Surgical History: Reports Other
Additional Past Surgical History:
Bilateral Foot Surgeries
Appendectomy
Bilateral GASTON
R IJ HD Cath (temporary)
Social History
Tobacco: Former Smoker (Quit smoking 50 years ago.)
Alcohol: Daily ( Drinks 1 beer daily now on admission. History of chronic alcohol abuse. Patient states he drinks occasional beer. )
Drug: None
Family History
Family History: Not pertinent
Allergies / Home Medications
Allergies reflects when Allergies were last updated in [facility].
Home Medications with original date entered in [facility]
Allergy/Medication List:
Allergies
Allergy/AdvReac Type Severity Reaction Status Date / Time
acetaminophen [From Vicodin] Allergy Rash Verified 10/06/19 17:17
hydrocodone [From Vicodin] Allergy Rash Verified 10/06/19 17:17
Home Medications
apixaban 5 mg tablet (Eliquis) 5 mg PO BID #180 tabs 08/16/19
gabapentin 300 mg capsule 300 mg PO BID Pain 08/16/19
metoprolol tartrate 100 mg tablet 100 mg PO BID Blood pressure 08/16/19
temazepam 30 mg capsule (Restoril) 30 mg PO HS Mental Health/Anxiety 08/16/19
atorvastatin 40 mg tablet 80 mg PO QPM High cholesterol 10/06/19
omeprazole 40 mg capsule,delayed release 40 mg PO BID Gastrointestinal issue ##0 10/09/19
amlodipine 5 mg tablet 5 mg PO DAILY 10/19/21
docusate sodium 100 mg capsule (Colace) 100 mg PO DAILY 10/19/21
escitalopram oxalate 20 mg tablet 20 mg PO DAILY 10/19/21
fluoxetine 10 mg tablet 10 mg PO DAILY 10/19/21
lisinopril 10 mg tablet 10 mg PO DAILY 10/19/21
naltrexone 50 mg tablet 50 mg PO DAILY 10/19/21
trazodone 100 mg tablet 100 mg PO HS 10/19/21
Review of Systems
-
History Source: Patient
A 12 point ROS was completed and negative except as noted: Yes
Constitutional: Denies Fever or Chills
EENT: Reports Other (Epistaxis right naris); Denies Sore Throat or Runny Nose
Respiratory: Denies Cough or Trouble Breathing
Cardiac: Denies Chest Pain, Diaphoresis, Palpitations or Syncope
Abdomen/GI: Denies Abdominal Pain, Nausea, Vomiting, Diarrhea, Constipated, Bloody Stools or Black Stools
: Denies Dysuria, Frequency, Flank Pain, Incontinence or Difficulty Voiding
Musculoskeletal: Denies Joint Pain or Edema
Skin: Denies Itching or Rash
Neurological: Reports Headache; Denies Dizzy or Weakness
Endocrine: Reports No Symptoms
Hematologic/Lymphatic: Reports No Symptoms
Psych: Reports Calm
Physical Exam
Vital Signs
Vital Signs
Temp Pulse Resp BP Pulse Ox
98 F 81 21 170/75 94
03/04/25 12:52 03/04/25 16:04 03/04/25 16:04 03/04/25 16:04 03/04/25 16:04
Physical Exam
General: No Pain, Fever or Chills
HEENT: NormoCephalic, Anicteric, Moist mucous membranes, [place] Conjunctivae, No Ptosis and Other (Nasal balloon present right naris no active bleeding)
Respiratory: Clear; No Wheezes, Rales or Rhonchi
Cardiac: S1/S2 and Regular Rhythm; No Murmur, Rub, Gallop or Peripheral Edema
Breast: Deferred by me
GI: Soft, Non Tender, Non Distended, Normal Bowel Sounds and No Hepatosplenomegaly
Rectal: Deferred by Provider
Genito-urinary: Deferred by me
Musculoskeletal: No Clubbing, No Cyanosis and No Edema
Skin: Warm and Dry; No Rash
Neuro: AO x 3, No Motor Deficits, Nonfocal/grossly intact, Cranial Nerves Intact, No Sensory Deficits and Other (Chronic vision impairment left eye wears patch due to retina injury x 2); No Slurred Speech, Facial Droop, Tremors or Sedated
Psych: Calm
Laboratory Results
-
03/04/25 15:49
Laboratory Results
PT 14.5 Sec (11.4-14.6) 03/04/25 15:49
INR 1.10 03/04/25 15:49
APTT 26.0 Sec (23.4-35.0) 03/04/25 15:49
Total Bilirubin Cancelled 03/04/25 15:49
AST Cancelled 03/04/25 15:49
ALT Cancelled 03/04/25 15:49
Alkaline Phosphatase Cancelled 03/04/25 15:49
Data Reviewed
-
Lab Data: Labs Reviewed by me
Impression/Plan
-
Impression/plan:
Admit to telemetry
#Posterior epistaxis RIGHT NARES
#Recurrent epistaxis last episode 3 to 4 months ago requiring cauterization, then prior admission 10/13 - 10/18/2023 requiring balloon and cauterization
Hgb 11.2
- Hold Eliquis, hold aspirin
- Type and screen
- Obtained blood consent and scanned to chart
- He had nasal balloon placed in right nares in ER
- Consult ENT Dr. Rutledge aware
-IV Ancef
- Follow H&H every 6 hours
- Tylenol for headache
#Paroxysmal A-fib Dx July 2019
-Hold Eliquis due to epistaxis last dose was yesterday 03/03/2025 evening
- Continue metoprolol to tartrate for rate control
#CAD
-Continue beta-toya, statin
-hold aspirin
#HTN
BP 170/75
-Continue lisinopril 5 mg every afternoon, metoprolol tartrate 25 mg twice daily
#Peripheral neuropathy
#Depression
#PTSD
- Continue Lexapro
#Alcohol use
Reportedly drinks 1 beer daily now
#History of constipation
#History of left eye retina tear x 2 wears patch to left eye
Continue eyedrops
#Insomnia
Continue trazodone
DVT prophylaxis
Hold MICROFICHE DUPLICATOR Eliquis
Full code
[2025-03-04 16:54] LABS: ALT (SGPT) 19 U/L (0-50); AST (SGOT) 21 U/L (17-59); Albumin 3.9 g/dl (3.5-5.0); Alkaline Phosphatase 116 U/L (38-126); Blood Urea Nitrogen 15 mg/dl (9-20); Calcium 8.9 mg/dl (8.4-10.2); Carbon Dioxide 25 mmol/L (22-30); Chloride 105 mmol/L (98-107); Estimated Creatinine Clearance 64 ml/min; Glucose 125 mg/dl (70-99); Potassium 4.7 mmol/L (3.5-5.1); Sodium 134 mmol/L (135-145); Total Protein 6.8 g/dl (6.3-8.2); eGFR > 60.00
--- NOTE | 2025-03-04 17:23 | EDCM ---
Reviewed chart and met with pt bedside in ED. Pt lives with his in 2 story home, [address], first floor half bath, full flight to second floor bedroom and full bath.
Independent in ADLs, personal care and ambulation at baseline. No assistive device, still drives. Only DME is CPAP.
Confirms prescription coverage through [facility].
No hx VN or SNF
PCP: Kavitha Anders
Pharmacy: [facility] for local scripts, meds supplied by [facility]
Anticipate discharge home, CM will continue to follow for all discharge planning needs.
[2025-03-04] MEDS: ANCEF 5 IV (17:39)
[2025-03-04 18:51] VITALS: BP 185/79; BMI 24.3
[2025-03-04 19:48] LABS: Hematocrit 32.8 % (39.0-52.0); Hemoglobin 10.5 g/dL (13.0-18.0)
[2025-03-04] MEDS: ZESTRIL 5 MG PO (19:59)
[2025-03-04] MEDS: LIPITOR 80 MG PO (20:00)
[2025-03-04] MEDS: LOPRESSOR 25 MG PO (20:00)
[2025-03-04] MEDS: LEXAPRO 20 MG PO (20:00)
[2025-03-04] MEDS: OCUVITE SOFTGEL 1 CAP PO (20:00)
[2025-03-04] MEDS: VITAMIN D3 (cholecalciferol) 25 MCG PO (20:01)
[2025-03-04 20:37] VITALS: BMI 24.3
[2025-03-04] MEDS: TYLENOL 650 MG PO (20:44)
[2025-03-04] MEDS: DESYREL 100 MG PO (21:30)
[2025-03-04 23:27] VITALS: BP 130/60
[2025-03-05] MEDS: ANCEF 5 IV ×3 (01:40→16:51)
[2025-03-05 02:08] LABS: Hematocrit 30.9 % (39.0-52.0); Hemoglobin 9.9 g/dL (13.0-18.0)
[2025-03-05 03:00] VITALS: BP 122/55
[2025-03-05] MEDS: TYLENOL 650 MG PO (04:23)
[2025-03-05 04:43] VITALS: BMI 24.3
[2025-03-05 07:00] VITALS: BP 149/64
[2025-03-05 07:24] LABS: Hematocrit 31.9 % (39.0-52.0); Hemoglobin 10.4 g/dL (13.0-18.0); Mean Corp Hgb Conc. 32.6 g/dL (33.0-37.0); Mean Corpuscular Volume 99.7 fL (80.0-94.0); Nucleated Red Blood Cells % 0 % (-); Platelet Count 174 10^3/uL (130-400); Red Cell Dist. Width 14.4 % (11.5-14.5)
[2025-03-05] MEDS: OCUVITE SOFTGEL 1 CAP PO ×2 (08:11→20:23)
[2025-03-05] MEDS: ULTRAM 25 MG PO (08:11)
[2025-03-05] MEDS: LOPRESSOR 25 MG PO ×2 (08:15→20:23)
[2025-03-05 08:20] LABS: ALT (SGPT) 17 U/L (0-50); AST (SGOT) 19 U/L (17-59); Albumin 3.7 g/dl (3.5-5.0); Alkaline Phosphatase 116 U/L (38-126); Blood Urea Nitrogen 22 mg/dl (9-20); Calcium 9.0 mg/dl (8.4-10.2); Carbon Dioxide 28 mmol/L (22-30); Chloride 103 mmol/L (98-107); Estimated Creatinine Clearance 64 ml/min; Glucose 116 mg/dl (70-99); Potassium 5.1 mmol/L (3.5-5.1); Sodium 137 mmol/L (135-145); Total Protein 6.4 g/dl (6.3-8.2); eGFR > 60.00
[2025-03-05 11:00] VITALS: BP 163/69
--- NOTE | 2025-03-05 11:40 | W.PN.ENT ---
Today's Communication
-
as above
Impression / Plan
-
Epistaxis well controlled.
Packing in place for about 3-4 days.
Packing could be removed in office if he is discharged, or in house if he is still admitted.
From our point of view he could be discharged today if okay from general medicine point of view.
Subjective Data
-
Epistaxis; no more bleeding
Full consult dictated.
Objective Data
-
Vital Signs
Temp Pulse Resp BP Pulse Ox
98.3 F 64 16 149/64 97
03/05/25 07:00 03/05/25 07:00 03/05/25 07:00 03/05/25 07:00 03/05/25 07:00
Lab Results
03/05/25 07:10
PT 14.5 Sec (11.4-14.6) 03/04/25 15:49
INR 1.10 03/04/25 15:49
APTT 26.0 Sec (23.4-35.0) 03/04/25 15:49
Calcium 9.0 mg/dl (8.4-10.2) 03/05/25 07:10
Total Bilirubin 0.8 mg/dl (0.2-1.3) 03/05/25 07:10
AST 19 U/L (17-59) 03/05/25 07:10
ALT 17 U/L (0-50) 03/05/25 07:10
Alkaline Phosphatase 116 U/L (38-126) 03/05/25 07:10
[2025-03-05 12:52] LABS: Hematocrit 32.3 % (39.0-52.0); Hemoglobin 10.3 g/dL (13.0-18.0)
[2025-03-05 15:00] VITALS: BP 168/73
[2025-03-05] MEDS: ULTRAM 50 MG PO (15:31)
--- NOTE | 2025-03-05 16:07 | CM ---
CM following re: discharge planning.
Reviewed pt's chart, met with pt.
Pt confirmed he is independent with functional ability and he will return back home with spouse. IMM reviewed, placed on chart, pt has a copy.
D/C plan: home no needs anticipated.
[2025-03-05] MEDS: CHLORASEPTIC/SORE THROAT SPRAY 1 SPRAY PO (16:24)
[2025-03-05] MEDS: OCEAN, SALINE MIST 1 SPRAYS NASAL (16:24)
--- NOTE | 2025-03-05 16:30 | W.PN.HOSP.TC ---
Addendum entered and electronically signed by Blake Toscano MD 03/05/25 23:28:
Attending Addendum-
I saw and evaluated the patient. I reviewed the resident�s note and agree with findings and plan as documented in the resident�s note. Sub: complains of sore throat and frontal MCFARLANE. No other neuro sxs. Had pain from nasal baloon. Full 12 point ROS
reviewed and negative except as documented Exam: Vitals reviewed in chart GEN-NAD HEENT nasal rocket in palce right nostril no bleeding seen Heart RRR no MRG Lungs clear abd soft ND NT pos BS LE no edema
Plan:
#Posterior epistaxis RIGHT NARES
#Recurrent epistaxis last episode 3 to 4 months ago requiring cauterization, then prior admission 10/13 - 10/18/2023 requiring balloon and cauterization
Hgb stable
- Hold Eliquis x 1 week, hold aspirin
- He had rhino rocket placed in right nares in ER
- appreciate ENT input
- cont Ancef for now->transition to keflex on dc
- Follow CBC
- Tylenol for headache
- DC rocket on per ENT as OP
#Paroxysmal A-fib Dx July 2019
-Hold Eliquis due to epistaxis last dose was yesterday 03/03 evening
-Continue metoprolol
#CAD
-Continue beta-toya, statin
-hold aspirin
#HTN
-Continue lisinopril, metoprolol tartrate
#Peripheral neuropathy
#Depression
#PTSD
- Continue Lexapro
#Alcohol use
Reportedly drinks 1 beer daily now
#History of constipation-start bowel regimin
#History of left eye retina tear x 2 wears patch to left eye
Continue eyedrops
#Insomnia
Continue trazodone
DVT prophylaxis
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
Dispo patient not comfortable with DC today, DC home in am
Time spent coordinating care, review of plan of care with resident, personally reviewed records in EMR, med rec, consults, notes, labs, radiology, d/w nursing,ENT � 51 mins
Original Note:
Today's Communication/Plan
-
- ENT will remove packing and nasal balloon outpatient later this week
- Continue antibiotics until
- Continue holding Eliquis until packing is removed, likely on
- Continue Tylenol as needed, or tramadol 50mg every 6 hours as needed for headache. Oxycodone 5 mg every 4 hours as needed ordered for severe pain
- Patient will be discharged tomorrow
Assessment / Plan
Assessment / Plan
#Posterior epistaxis right nares
#Recurrent epistaxis last episode 3 to 4 months ago requiring cauterization, then prior admission 10/13 - 10/18/2023 requiring balloon and cauterization
- Hgb 10.3 g/dL
- Continue to hold Eliquis, continue to hold aspirin. ENT requested that hold continue until packing is removed in 3 to 4 days.
- Right nasal balloon still in place from ED
- ENT following, recommended outpatient removal of balloon and packing on
- Continue IV Ancef, will transition to oral antibiotics tomorrow and continue through .
- Patient not receiving headache symptoms relief from Tylenol. Ordered tramadol 50 mg as needed as well as oxycodone 5 mg every 4 hours as needed for severe pain.
- Nasal saline spray for congestion of the left nares as needed
- Chloraseptic spray for irritated throat as needed
#Paroxysmal A-fib
- Currently holding Eliquis due to epistaxis last dose 03/03/2025 evening
- Continue beta toya for rate control
#CAD
- Continue beta-toya,
- Continue statin
- Currently holding asprin
#HTN
BP 168/73
- Continue lisinopril 5 mg every afternoon, metoprolol tartrate 25 mg twice daily
- Ordered hydralazine 10 mg as needed for systolic blood pressure greater than 160
#Depression
#PTSD
- Continue Lexapro
#History of left eye retina tear x 2 wears patch to left eye
Continue eyedrops
#Insomnia
Continue trazodone
Full code
Anticipated Discharge: Within 24 hours
Subjective/Interval History
-
Date of Service: March 05, 2025
Patient seen at the bedside this morning. Patient is complaining of a frontal headache, sore throat and congestion of the left nostril in addition to discomfort associated with the right nasal balloon in place. Patient overall is feeling her
right. Patient denies changes in vision, weakness, changes in speech, chest pain, shortness of breath, nausea, vomiting, abdominal pain, changes in bowel movements, difficulty with urination, swelling of bilateral lower extremities.
Objective Data
-
Labs:
Laboratory Results
03/05/25 03/05/25 03/05/25
07:10 12:29 18:47
WBC 7.8
Hgb 10.4 L 10.3 L Cancelled
Hct 31.9 L 32.3 L Cancelled
Plt Count 174
Sodium 137
Potassium 5.1
Chloride 103
Carbon Dioxide 28
BUN 22 H
Creatinine 0.9
Glucose 116 H
Calcium 9.0
Total Bilirubin 0.8
AST 19
ALT 17
Alkaline Phosphatase 116
Vital Signs:
Vital Signs
Temp Pulse Resp BP Pulse Ox
99.2 F 72 16 168/73 96
03/05/25 15:00 03/05/25 15:00 03/05/25 15:00 03/05/25 15:00 03/05/25 15:00
Review of Systems
-
History Source: Patient
Constitutional: Reports No Symptoms
EENT: Reports Tearing (Right eye), Bloody Nose (No active bleeding, balloon in place in right nares.) and Other (Congestion noted in left nostril)
Respiratory: Reports No Symptoms
Cardiac: Reports No Symptoms
Abdomen/GI: Reports No Symptoms
Genitourinary: Reports No Symptoms
Musculoskeletal: Reports No Symptoms
Skin: Reports No Symptoms
Neuro: Reports No Symptoms
Hematologic / Lymphatic: Reports No Symptoms
Physical Exam
-
General: Well Developed, Well Nourished and No Apparent Distress
HEENT: Normocephalic, Atraumatic and Other (No erythema noted on oropharynx exam, right nasal balloon in place, no bleeding)
Respiratory: Clear to Auscultation
Cardiac: Regular Rhythm
GI: Soft, Nontender and Nondistended
Musculoskeletal: No Edema
Skin: Warm and Dry
Neuro: AO x 3
Psych: Calm
[2025-03-05] MEDS: ZESTRIL 5 MG PO (16:50)
[2025-03-05] MEDS: VITAMIN D3 (cholecalciferol) 25 MCG PO (16:51)
[2025-03-05] MEDS: LIPITOR 80 MG PO (16:51)
[2025-03-05] MEDS: LEXAPRO 20 MG PO (16:51)
[2025-03-05] MEDS: APRESOLINE 10 MG IV (18:34)
--- NOTE | 2025-03-05 18:39 | PTCARENOTE ---
BP 165/79. PRN 10 mg IV Hydralazine administered
[2025-03-05 19:15] VITALS: BP 138/68
[2025-03-05] MEDS: ROXICODONE 5 MG PO (20:25)
[2025-03-05] MEDS: DESYREL 100 MG PO (21:28)
[2025-03-05 23:06] VITALS: BP 104/46
[2025-03-06] MEDS: ANCEF 5 IV ×3 (01:10→17:12)
[2025-03-06] MEDS: ROXICODONE 5 MG PO ×2 (01:12→19:31)
[2025-03-06 03:14] VITALS: BP 110/51
[2025-03-06 06:00] VITALS: BMI 24.1
[2025-03-06 06:07] LABS: Hematocrit 32.4 % (39.0-52.0); Hemoglobin 10.4 g/dL (13.0-18.0); Mean Corp Hgb Conc. 32.1 g/dL (33.0-37.0); Mean Corpuscular Volume 99.4 fL (80.0-94.0); Nucleated Red Blood Cells % 0 % (-); Platelet Count 188 10^3/uL (130-400); Red Cell Dist. Width 14.6 % (11.5-14.5)
[2025-03-06 07:07] VITALS: BP 102/55
[2025-03-06] MEDS: LOPRESSOR 25 MG PO ×2 (08:56→19:28)
[2025-03-06] MEDS: OCUVITE SOFTGEL 1 CAP PO ×2 (08:56→19:28)
--- NOTE | 2025-03-06 09:12 | PN.CDI ---
CDI
- -
CDI:
Physician Documentation Request
Admit Date: 03/04/25 18:22
Dear Doctor,
Patient admitted for epistaxis.
03/05 Hospitalist PN: 'Posterior epistaxis RIGHT NARES...Hold Eliquis x 1 week, hold aspirin...Continue holding Eliquis until packing is removed, likely on '
Please clarify the relationship between these conditions:
Yes, epistaxis is related to/associated with/exacerbated by Eliquis.
No, epistaxis is not related to/associated with/exacerbated by Eliquis but it is due to ___. (Please specify)
Unable to determine
Use of terms such as suspected, likely, concern for, or probable (associated with a specific diagnosis that is being evaluated, monitored, or treated as if it exists) are acceptable and can be coded in the inpatient setting, when documented at the
time of discharge.
Thank you,
Shavon Diggs RN, BSN
CDI Specialist
Available via [place] text
Please use your independent medical judgment in providing your response.
[2025-03-06 11:07] VITALS: BP 101/47
[2025-03-06] MEDS: ULTRAM 50 MG PO ×2 (13:55→21:25)
--- NOTE | 2025-03-06 14:39 | W.PN.HOSP.TC ---
Addendum entered and electronically signed by Blake Toscano MD 03/06/25 23:11:
Attending Addendum-
I saw and evaluated the patient. I reviewed the resident�s note and agree with findings and plan as documented in the resident�s note. Sub: MCFARLANE improved. fearful about going home. no further epistaxis. No other neuro sxs. Less pain from nasal
balloon. Full 12 point ROS reviewed and negative except as documented Exam: Vitals reviewed in chart GEN-NAD HEENT nasal balloon in palace right nostril no bleeding seen Heart RRR no MRG Lungs clear abd soft ND NT pos BS LE no edema
Plan:
#Posterior epistaxis RIGHT NARES exacerbated by eliquis
#Recurrent epistaxis last episode 3 to 4 months ago requiring cauterization, then prior admission 10/13 - 10/18/2023 requiring balloon and cauterization
- CTM Hgb- stable
- Hold Eliquis x 1 week, hold aspirin
- He had nasal balloon placed in right nares in ER, no cauterization required per ENT
- appreciate ENT input
- cont Ancef for now->transition to keflex on dc
- Follow CBC
- Tylenol for headache
- DC balloon on per ENT as OP
#Paroxysmal A-fib Dx July 2019
-Hold Eliquis due to epistaxis last dose 03/03 evening
-Continue metoprolol
-would benefit from watchman
#CAD
-Continue beta-toya, statin
-hold aspirin
#HTN
-Continue lisinopril, metoprolol tartrate
#Peripheral neuropathy
#Depression
#PTSD
- Continue Lexapro
#Alcohol use
Reportedly drinks 1 beer daily
#History of constipation-start bowel regimen
#History of left eye retina tear x 2 wears patch to left eye
Continue eyedrops
#Insomnia
Continue trazodone
DVT prophylaxis
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
Dispo patient again not comfortable with DC today, DC home in am
Time spent coordinating care, review of plan of care with resident, personally reviewed records in EMR, med rec, consults, notes, labs, radiology, d/w nursing,ENT � 52 mins
Original Note:
Today's Communication/Plan
-
- Patient with stable hemoglobin today of 10.4 g/dL
- Right nasal balloon still in place from ED
- ENT recommended outpatient removal of balloon and packing on . Reached out to Dr. Miller today to confirm that this is still the plan given the patient's hesitation for discharge and outpatient packing removal. ENT agrees that patient's
nasal packing can be removed as an outpatient and that there is nothing keeping him in the hospital from their end. ENT cleared patient for discharge. We will continue to hold Eliquis and aspirin until packing is removed.
- Antibiotic prophylaxis: Patient transition to p.o. antibiotics at discharge
- Patient with improved headache pain. Patient given a written prescription for tramadol 50 mg as needed every 6 hours quantity #10 tabs at discharge
Assessment / Plan
Assessment / Plan
#Posterior epistaxis right nares -- exacerbated by Eliquis
#Recurrent epistaxis last episode 3 to 4 months ago requiring cauterization, then prior admission 10/13 - 10/18/2023 requiring balloon and cauterization
- Hgb 10.4 g/dL - stable
- Continue to hold Eliquis, continue to hold aspirin. ENT requested that hold continue until packing is removed in 3 to 4 days.
- Right nasal balloon still in place from ED
- ENT following, recommended outpatient removal of balloon and packing on . Reached out to Dr. Miller today to confirm that this is still the plan given the patient's hesitation for discharge and outpatient packing removal. ENT agrees that
patient's nasal packing can be removed as an outpatient and that there is nothing keeping him in the hospital from their end. ENT cleared patient for discharge.
- Patient on IV Ancef while admitted. Will transition to oral Keflex 500 mg 3 times daily starting at discharge.
- Patient with improved headache pain. Patient will be given a prescription for tramadol 50 mg as needed quantity #10 tabs at discharge
- Patient can continue nasal saline spray for congestion of the left nares as needed
- Patient can continue Chloraseptic spray for irritated throat as needed
#Paroxysmal A-fib
- Currently holding Eliquis due to epistaxis last dose 03/03/2025 evening, will continue to hold until packing removed
- Continue beta toya for rate control
#CAD
- Continue beta-toya,
- Continue statin
- Currently holding asprin, will continue to hold until packing removed
#HTN
BP today 120 /55
- Continue home blood pressure medications
- hydralazine 10 mg as needed for systolic blood pressure greater than 160, will discontinue at discharge
#Depression
#PTSD
- Continue Lexapro
#History of left eye retina tear x 2 wears patch to left eye
Continue eyedrops
#Insomnia
Continue trazodone
Full code
Anticipated Discharge: Today
Subjective/Interval History
-
Date of Service: March 06, 2025
Patient seen at the bedside this morning. Patient says pain has improved to about a 5 out of 10, last dose of tramadol last night. Overnight patient did need 1 dose of hydralazine for systolic blood pressure in the 160s. Although ENT has told
patient that he can have the packing removed outpatient, patient is expressing concerns with having the packing removed in an outpatient setting due to his last episode of epistaxis which required cautery in the OR. We discussed this at length and
patient is aware that there is no medical reason for him to stay in the hospital until his visit on . I also reached out to ENT to confirm the plan, and they agree that the patient is cleared for discharge from their end and that the
packing can be removed outpatient.
Patient seen later in the evening again. Patient refused to be discharged from the hospital without an official time for an appointment on with ENT. Discussed with patient that ENT has already confirmed their availability on for
removing the nasal packing, and he just needs to call to coordinate an appointment time. Patient does not feel that this should be his responsibility. Discharge order has been removed and patient will be discharged tomorrow morning after an
appointment has been made for him.
Objective Data
-
Labs:
Laboratory Results
03/06/25
05:33
WBC 9.6
Hgb 10.4 L
Hct 32.4 L
Plt Count 188
Vital Signs:
Vital Signs
Temp Pulse Resp BP Pulse Ox
98.2 F 63 18 101/47 93
03/06/25 11:07 03/06/25 11:07 03/06/25 11:07 03/06/25 11:07 03/06/25 11:07
I&O
03/05/25 03/06/25 03/07/25
06:59 06:59 06:59
Intake Total 1140 / 1140
Balance 1140 / 1140
Review of Systems
-
History Source: Patient
Constitutional: Reports No Symptoms
EENT: Reports Sore Throat (Mild, improved greatly with Chloraseptic spray), Bloody Nose (Nasal packing and nasal balloon in place in right nares, no active bleeding) and Other (Frontal headache still present but improving)
Respiratory: Reports No Symptoms
Cardiac: Reports No Symptoms
Abdomen/GI: Reports No Symptoms
Genitourinary: Reports No Symptoms
Musculoskeletal: Reports No Symptoms
Skin: Reports No Symptoms
Neuro: Reports Headache (Frontal headache still present but improving)
Endocrine: Reports No Symptoms
Hematologic / Lymphatic: Reports No Symptoms
Allergy / Immunology: Reports No Symptoms
Physical Exam
-
HEENT: Normocephalic, Atraumatic, Moist Mucous Membranes and Other (No pharyngeal erythema noted, nasal packing and balloon in place in right nares, no active bleeding)
Respiratory: Clear to Auscultation
Cardiac: Regular Rhythm
GI: Soft, Nontender, Nondistended and Normal Bowel Sounds
Skin: Warm and Dry
Neuro: AO x 3
Psych: Calm
--- NOTE | 2025-03-06 14:52 | CM ---
Addendum entered by Pablo Whiteside 03/06/25 15:18:
Discharge order noted. Pt is aware, expressed his agreement and he stated he will drive home, his car is parked on the parking lot.
No after care VN needs identified.
D/C plan: home no needs
Original Note:
CM following re: discharge planning.
Reviewed pt's chart.
Pt confirmed he is independent with functional ability and he will return back home with spouse.
D/C plan: home no needs anticipated.
[2025-03-06 15:12] VITALS: BP 120/55
[2025-03-06] MEDS: LIPITOR 80 MG PO (17:12)
[2025-03-06] MEDS: VITAMIN D3 (cholecalciferol) 25 MCG PO (17:12)
[2025-03-06] MEDS: LEXAPRO 20 MG PO (17:12)
[2025-03-06] MEDS: ZESTRIL 5 MG PO (17:16)
[2025-03-06 19:15] VITALS: BP 133/86
[2025-03-06] MEDS: DESYREL 100 MG PO (21:20)
[2025-03-06 22:43] VITALS: BP 94/40
[2025-03-07 03:00] VITALS: BP 94/50
[2025-03-07] MEDS: ANCEF 5 IV ×3 (03:01→17:56)
--- NOTE | 2025-03-07 03:16 | DOWNTIME ---
There was a [employer] Client Advertising Strategist Downtime on 03/07/2025 from 0100 to 03/07/2025 at 0255. Downtime documentation of patient's care, including medication administrations, has been reconciled in the electronic record per guidelines. Refer to the
patient's paper chart under the miscellaneous tab to see printed paper medication records and downtime forms.
[2025-03-07 05:19] VITALS: BMI 24.2
[2025-03-07 07:16] VITALS: BP 106/54
[2025-03-07] MEDS: OCUVITE SOFTGEL 1 CAP PO ×2 (07:57→20:33)
[2025-03-07] MEDS: LOPRESSOR PO (08:55)
[2025-03-07 09:33] LABS: Hematocrit 32.8 % (39.0-52.0); Hemoglobin 10.5 g/dL (13.0-18.0); Mean Corp Hgb Conc. 32.0 g/dL (33.0-37.0); Mean Corpuscular Volume 98.2 fL (80.0-94.0); Nucleated Red Blood Cells % 0 % (-); Platelet Count 187 10^3/uL (130-400); Red Cell Dist. Width 14.6 % (11.5-14.5)
[2025-03-07 09:51] LABS: ALT (SGPT) 17 U/L (0-50); AST (SGOT) 29 U/L (17-59); Albumin 3.9 g/dl (3.5-5.0); Alkaline Phosphatase 113 U/L (38-126); Blood Urea Nitrogen 33 mg/dl (9-20); Calcium 8.9 mg/dl (8.4-10.2); Carbon Dioxide 28 mmol/L (22-30); Chloride 102 mmol/L (98-107); Estimated Creatinine Clearance 48 ml/min; Glucose 105 mg/dl (70-99); Potassium 5.5 mmol/L (3.5-5.1); Sodium 133 mmol/L (135-145); Total Protein 6.7 g/dl (6.3-8.2); eGFR > 60.00
[2025-03-07] MEDS: NSS 1000 IV (11:05)
[2025-03-07 11:14] VITALS: BP 124/57
[2025-03-07] MEDS: ULTRAM 50 MG PO (13:08)
[2025-03-07] MEDS: PROTONIX 40 MG PO ×2 (13:09→20:33)
[2025-03-07 15:12] VITALS: BP 122/60
[2025-03-07 15:55] LABS: Hematocrit 31.3 % (39.0-52.0); Hemoglobin 10.0 g/dL (13.0-18.0)
--- NOTE | 2025-03-07 17:54 | W.PN.HOSP.TC ---
Addendum entered and electronically signed by Blake Toscano MD 03/07/25 22:53:
Attending Addendum-
I saw and evaluated the patient. I reviewed the resident�s note and agree with findings and plan as documented in the resident�s note. Sub: complains of black stools starting last pm and continuing today. also complains of indigestion. Seen with
present. no further epistaxis. No other neuro sxs. Full 12 point ROS reviewed and negative except as documented Exam: Vitals reviewed in chart GEN-NAD HEENT nasal balloon in place right nostril no bleeding seen Heart RRR no MRG Lungs clear abd
soft ND NT pos BS LE no edema
Plan:
#Posterior epistaxis RIGHT NARES exacerbated by eliquis
#Recurrent epistaxis last episode 3 to 4 months ago requiring cauterization, then prior admission 10/13 - 10/18/2023 requiring balloon and cauterization
- CTM Hgb- stable
- Hold Eliquis and aspirin
- He had nasal balloon placed in right nares in ER, no cauterization required per ENT
- appreciate ENT input
- cont Ancef for now->transition to keflex on dc if packing still in place
- Follow CBC
- Tylenol for headache
- DC nasal balloon/packing per ENT as IP in AM
# Black Stools
- likely residual from epistaxis
- start PPI BID and trend h and h q 8 hours
# Hyponatremia- CTM, repeat BMP in am
# Hyperkalemia-mild- repeat BMP in am
#Paroxysmal A-fib Dx July 2019
-Hold Eliquis due to epistaxis last dose 03/03 evening
-Continue metoprolol
-would benefit from watchman, to d/w cards as OP
#CAD
-Continue beta-toya, statin
-hold aspirin
#HTN
-Continue lisinopril, metoprolol tartrate
#Peripheral neuropathy
#Depression
#PTSD
- Continue Lexapro
#Alcohol use
Reportedly drinks 1 beer daily
#History of constipation-start bowel regimen
#History of left eye retina tear x 2 wears patch to left eye
Continue eyedrops
#Insomnia
Continue trazodone
DVT prophylaxis
Hold [employer] Eliquis
Dispo DC home after removal of balloon
Time spent coordinating care, review of plan of care with resident, personally reviewed records in EMR, med rec, consults, notes, labs, radiology, d/w nursing,ENT and � 53 mins
Original Note:
Today's Communication/Plan
-
- Patient with new black, tarry stools overnight. Possible etiology from epistaxis episode on Wednesday. This is first bowel movement since admission.
- Will keep patient admitted overnight.
- Assess H&H every 6 hours
- ENT aware and will see patient and remove packing inpatient tomorrow.
Assessment / Plan
Assessment / Plan
#Melena
- patient with new black, tarry stools overnight
- etiology possibly from epistaxis event two days ago - this is first bowel movement since
- Hgb stable this morning at 10.5. Repeat Hgb 10.0. H&H q 6 hours
- Will keep patient admitted overnight
#Posterior epistaxis right nares -- exacerbated by Eliquis
#Recurrent epistaxis last episode 3 to 4 months ago requiring cauterization, then prior admission 10/13 - 10/18/2023 requiring balloon and cauterization
- Hgb 10. 5 g/dL, repeat Hgb 10.0 g/dL
- Continue to hold Eliquis, continue to hold aspirin. ENT requested that hold continue until packing is removed tomorrow
- Right nasal balloon still in place from ED
- ENT following, although initially recommended outpatient removal of balloon and packing on , ENT will see patient tomorrow and remove packing and patient
- Patient on IV Ancef while admitted. Will stop IV antibiotics tomorrow when packing is removed
- Patient with improved headache pain.
- Patient can continue nasal saline spray for congestion of the left nares as needed
- Patient can continue Chloraseptic spray for irritated throat as needed
#Paroxysmal A-fib
- Currently holding Eliquis due to epistaxis last dose 03/03/2025 evening, will continue to hold until packing removed tomorrow
- Continue beta toya for rate control -dose held today for SBP less than 100
#CAD
- Continue beta-toya, dose held today for systolic BP less than 100
- Continue statin
- Currently holding asprin, will continue to hold until packing removed tomorrow
#HTN
BP today 94/50 this morning
- BP meds held today for systolic BP less than 100
- hydralazine 10 mg as needed for systolic blood pressure greater than 160, will discontinue at discharge
#Depression
#PTSD
- Continue Lexapro
#History of left eye retina tear x 2 wears patch to left eye
- Continue eyedrops
#Insomnia
- Continue trazodone
Full code
Anticipated Discharge: Within 24 hours
Subjective/Interval History
-
Date of Service: March 07, 2025
Patient was seen this morning at bedside. On review of systems patient notes that he started having black, tarry stools last night. Patient noted 1 episode of copious black stool followed by 1 episode of a small amount of liquid black stool. This
is the first bowel movements patient has had since admission. Otherwise patient is doing well. Patient denies shortness of breath, chest pain, nausea vomiting, abdominal pain, bleeding from nose or mouth, bleeding from rectum, or blood in urine.
Patient is still anxious about the packing removal tomorrow. We did schedule an outpatient appointment for patient with ENT for packing removal tomorrow morning, but it will now be removed inpatient tomorrow.
Objective Data
-
Labs:
Laboratory Results
03/07/25 03/07/25 03/07/25
09:24 15:41 21:30
WBC 9.2
Hgb 10.5 L 10.0 L Pending
Hct 32.8 L 31.3 L Pending
Plt Count 187
Sodium 133 L
Potassium 5.5 H
Chloride 102
Carbon Dioxide 28
BUN 33 H
Creatinine 1.2
Glucose 105 H
Calcium 8.9
Total Bilirubin 0.6
AST 29
ALT 17
Alkaline Phosphatase 113
Vital Signs:
Vital Signs
Temp Pulse Resp BP Pulse Ox
98.3 F 64 18 122/60 95
03/07/25 15:12 03/07/25 15:12 03/07/25 15:12 03/07/25 15:12 03/07/25 15:12
I&O
03/06/25 03/07/25 03/08/25
06:59 06:59 06:59
Intake Total 1140 / 1140 480 / 480
Balance 1140 / 1140 480 / 480
Review of Systems
-
History Source: Patient
Constitutional: Reports No Symptoms
EENT: Reports Other (Frontal headache, nasal packing in place, no bleeding)
Respiratory: Reports No Symptoms
Cardiac: Reports No Symptoms
Abdomen/GI: Reports Black Stools (2 episodes of black, tarry stools overnight.)
Genitourinary: Reports No Symptoms
Musculoskeletal: Reports No Symptoms
Skin: Reports No Symptoms
Neuro: Reports No Symptoms
Endocrine: Reports No Symptoms
Hematologic / Lymphatic: Reports No Symptoms
Allergy / Immunology: Reports No Symptoms
Physical Exam
-
General: Well Developed, Well Nourished and Comfortable
HEENT: Other (Nasal packing and balloon in place in right nares)
Respiratory: Clear to Auscultation
Cardiac: Regular Rhythm
GI: Soft, Nontender, Nondistended and Normal Bowel Sounds
Skin: Warm and Dry
Neuro: Awake, Alert and Oriented
Psych: Calm
[2025-03-07] MEDS: VITAMIN D3 (cholecalciferol) 25 MCG PO (17:56)
[2025-03-07] MEDS: LEXAPRO 20 MG PO (17:56)
[2025-03-07] MEDS: LIPITOR 80 MG PO (17:56)
[2025-03-07] MEDS: ZESTRIL 5 MG PO (18:02)
[2025-03-07] MEDS: ROXICODONE 5 MG PO (18:08)
[2025-03-07] MEDS: TUMS CHEWABLE TABLET 200 MG PO (18:13)
[2025-03-07 19:10] VITALS: BP 121/62
[2025-03-07] MEDS: LOPRESSOR 25 MG PO (20:32)
[2025-03-07] MEDS: FLUSH (NSS) 1 FLUSH IV (20:33)
[2025-03-07] MEDS: DESYREL 100 MG PO (21:40)
[2025-03-07 21:49] LABS: Hematocrit 29.2 % (39.0-52.0); Hemoglobin 9.4 g/dL (13.0-18.0)
[2025-03-07 22:08] LABS: Blood Urea Nitrogen 26 mg/dl (9-20); Calcium 8.7 mg/dl (8.4-10.2); Carbon Dioxide 27 mmol/L (22-30); Chloride 100 mmol/L (98-107); Estimated Creatinine Clearance 64 ml/min; Glucose 112 mg/dl (70-99); Potassium 4.5 mmol/L (3.5-5.1); Sodium 129 mmol/L (135-145); eGFR > 60.00
[2025-03-07] MEDS: NSS IV (22:34)
[2025-03-07 23:09] VITALS: BP 121/55
[2025-03-08] MEDS: FLUSH (NSS) 2 FLUSH IV (02:17)
[2025-03-08] MEDS: ANCEF 5 IV ×2 (02:17→09:44)
[2025-03-08 03:17] VITALS: BP 103/53
[2025-03-08 04:25] LABS: Hematocrit 29.3 % (39.0-52.0); Hemoglobin 9.2 g/dL (13.0-18.0); Mean Corp Hgb Conc. 31.4 g/dL (33.0-37.0); Mean Corpuscular Volume 100.3 fL (80.0-94.0); Platelet Count 176 10^3/uL (130-400); Red Cell Dist. Width 14.2 % (11.5-14.5)
[2025-03-08 04:52] LABS: Blood Urea Nitrogen 25 mg/dl (9-20); Calcium 8.5 mg/dl (8.4-10.2); Carbon Dioxide 26 mmol/L (22-30); Chloride 104 mmol/L (98-107); Estimated Creatinine Clearance 64 ml/min; Glucose 112 mg/dl (70-99); Potassium 5.0 mmol/L (3.5-5.1); Sodium 135 mmol/L (135-145); eGFR > 60.00
[2025-03-08 05:53] VITALS: BMI 23.9
[2025-03-08 07:23] VITALS: BP 123/65
[2025-03-08] MEDS: LOPRESSOR 25 MG PO (07:46)
[2025-03-08] MEDS: OCUVITE SOFTGEL 1 CAP PO (07:46)
[2025-03-08] MEDS: PROTONIX 40 MG PO (07:46)
--- NOTE | 2025-03-08 08:58 | W.PN.HOSP.TC ---
Addendum entered and electronically signed by Blake Toscano MD 03/08/25 22:08:
Attending Addendum-
I saw and evaluated the patient. I reviewed the resident�s note and agree with findings and plan as documented in the resident�s note. Sub: no further black stools. no epistaxis. seen post nasal packing removal. Full 12 point ROS reviewed and
negative except as documented Exam: Vitals reviewed in chart GEN-NAD HEENT right nostril no bleeding seen Heart RRR no MRG Lungs clear abd soft ND NT pos BS LE no edema
Plan:
#Posterior epistaxis RIGHT NARES exacerbated by eliquis
#Recurrent epistaxis last episode 3 to 4 months ago requiring cauterization, then prior admission 10/13 - 10/18/2023 requiring balloon and cauterization
- CTM Hgb- stable
- Hold Eliquis and aspirin
- nasal balloon placed in right nares in ER, no cauterization required per ENT
- appreciate ENT input
- completed Ancef
- Follow CBC
- Tylenol for headache
- DC nasal balloon/packing 03/08 but ENT- no bleeding post removal
- stable for DC home
# Black Stools
- resolved
- likely residual from epistaxis
- cont PPI BID
# Hyponatremia- CTM, improved
# Hyperkalemia-mild- resolved
#Paroxysmal A-fib Dx July 2019
-Hold Eliquis due to epistaxis last dose 03/03 evening
-Continue metoprolol
-would benefit from watchman, to d/w cards as OP
-resume eliquis in am
#CAD
-Continue beta-toya, statin
-hold aspirin
#HTN
-Continue lisinopril, metoprolol tartrate
#Peripheral neuropathy
#Depression
#PTSD
- Continue Lexapro
#Alcohol use
Reportedly drinks 1 beer daily
#History of constipation-start bowel regimen
#History of left eye retina tear x 2 wears patch to left eye
Continue eyedrops
#Insomnia
Continue trazodone
DVT prophylaxis
Hold [employer] Eliquis
Dispo DC home
Time spent coordinating care, DC planning, review of DC plan of care with resident, transition of care, review of records, med rec/scripts sent electronically, consults, notes, d/w consultants, nursing, family, and CM� 32 mins >50% of this time was
devoted to counseling and coordination of care
Original Note:
Today's Communication/Plan
-
- ENT will remove nasal packing today
- Trending hemoglobin
- We will discontinue antibiotics once packing is removed
- Expected discharge later today
Assessment / Plan
Assessment / Plan
# Black stools
- patient with new black, tarry stools on 03/06
- Patient has not had bowel movement since to assess
- etiology possibly from epistaxis event
- Hemoglobin 9.2 this morning, will repeat.
- Started on Protonix twice daily
- Given fluids yesterday
#Posterior epistaxis right nares -- exacerbated by Eliquis
#Recurrent epistaxis last episode 3 to 4 months ago requiring cauterization, then prior admission 10/13 - 10/18/2023 requiring balloon and cauterization
- ENT to remove packing today
- Trending hemoglobin
- Continue to hold Eliquis, continue to hold aspirin.
- Right nasal balloon still in place from ED
- Will stop antibiotics once packing removed today
- Patient with improved headache pain.
- Patient can continue nasal saline spray for congestion of the left nares as needed
- Patient can continue Chloraseptic spray for irritated throat as needed
#Paroxysmal A-fib
- Currently holding Eliquis due to epistaxis last dose 03/03/2025 evening, will continue to hold until packing removed
- Continue beta toya for rate control -dose held today for SBP less than 100
#CAD
- Continue beta-toya, hold parameters in place for systolic BP less than 100
- Continue statin
- Currently holding asprin, will continue to hold until packing removed
#HTN
BP today 94/50 this morning
- BP meds held today for systolic BP less than 100
- hydralazine 10 mg as needed for systolic blood pressure greater than 160, will discontinue at discharge
#Depression
#PTSD
- Continue Lexapro
#History of left eye retina tear x 2 wears patch to left eye
- Continue eyedrops
#Insomnia
- Continue trazodone
Full code
Anticipated Discharge: Today
Subjective/Interval History
-
Date of Service: March 08, 2025
Patient seen at the bedside this morning. Patient had no acute events overnight. Patient is feeling well and has improved headache pain. Patient is anxious about getting the nasal packing taken out today by ENT. Patient has not had any bowel
movements since the evening of 03/06, so we are unable to assess color of stool at this time.
Objective Data
-
Labs:
Laboratory Results
03/07/25 03/08/25 03/08/25
21:39 04:13 11:15
WBC 8.5
Hgb 9.4 L 9.2 L Pending
Hct 29.2 L 29.3 L Pending
Plt Count 176
Sodium 129 L 135
Potassium 4.5 5.0
Chloride 100 104
Carbon Dioxide 27 26
BUN 26 H 25 H
Creatinine 0.9 0.9
Glucose 112 H 112 H
Calcium 8.7 8.5
Vital Signs:
Vital Signs
Temp Pulse Resp BP Pulse Ox
97.9 F 57 18 123/65 95
03/08/25 07:23 03/08/25 07:23 03/08/25 07:23 03/08/25 07:23 03/08/25 07:23
I&O
03/07/25 03/08/25 03/09/25
06:59 06:59 06:59
Intake Total 480 / 480 480 / 480
Balance 480 / 480 480 / 480
Review of Systems
-
History Source: Patient
Constitutional: Reports No Symptoms
EENT: Reports Other (Packing and nasal balloon in place in right nares, denies any bleeding)
Respiratory: Reports No Symptoms
Cardiac: Reports No Symptoms
Abdomen/GI: Reports Other (Last bowel movement patient reported as tarry, black stool on 03/06)
Genitourinary: Reports No Symptoms
Musculoskeletal: Reports No Symptoms
Skin: Reports No Symptoms
Neuro: Reports No Symptoms
Endocrine: Reports No Symptoms
Hematologic / Lymphatic: Reports No Symptoms
Allergy / Immunology: Reports No Symptoms
Physical Exam
-
General: Well Developed, Well Nourished and No Apparent Distress
HEENT: Normocephalic and Moist Mucous Membranes
Cardiac: Regular Rhythm
GI: Soft, Nontender and Nondistended
Musculoskeletal: No Edema
Skin: Warm and Dry
Neuro: Awake, Alert and Oriented
Psych: Calm
[2025-03-08 11:15] LABS: Hematocrit 28.5 % (39.0-52.0); Hemoglobin 9.2 g/dL (13.0-18.0)
[2025-03-08 11:28] VITALS: BP 108/58
--- NOTE | 2025-03-08 12:41 | CM ---
CM following re: discharge planning.
Reviewed pt's chart, met with pt.
Discharge order noted. Pt is aware, expressed his agreement and he stated he will drive home, his car is parked on the parking lot.
No after care VN needs identified.
D/C plan: home no needs. Pt will drive home
--- NOTE | 2025-03-08 15:41 | W.PN.ENT ---
Today's Communication
-
packing out, f/u w ent prn
Impression / Plan
-
The patient's packing was removed and there was no bleeding. He will not blow his nose for one week and will sneeze with his mouth open. I asked him to wait until tomorrow to start his Eliquis and nasal saline mist. Follow up with ENT as needed.
Subjective Data
-
The patient was seen at the bedside earlier today. He denies any bleeding. He feels better today.
Objective Data
-
Vital Signs
Temp Pulse Resp BP Pulse Ox
98.4 F 61 16 108/58 95
03/08/25 11:28 03/08/25 11:28 03/08/25 11:28 03/08/25 11:28 03/08/25 11:28
Intake & Output
03/07/25 03/08/25 03/09/25
06:59 06:59 06:59
Intake:
Oral fluids 480 / 480 480 / 480
Other:
Number of approximated MODERATE 2 3
amounts of urine
Lab Results
03/08/25 11:03
03/08/25 04:13
PT 14.5 Sec (11.4-14.6) 03/04/25 15:49
INR 1.10 03/04/25 15:49
APTT 26.0 Sec (23.4-35.0) 03/04/25 15:49
Calcium 8.5 mg/dl (8.4-10.2) 03/08/25 04:13
Total Bilirubin 0.6 mg/dl (0.2-1.3) 03/07/25 09:24
AST 29 U/L (17-59) 03/07/25 09:24
ALT 17 U/L (0-50) 03/07/25 09:24
Alkaline Phosphatase 113 U/L (38-126) 03/07/25 09:24
Physical Exam
-
GEN: NAD, Alert and oriented
HEENT: Packing in place in the right naris. Deflated and removed. No active bleeding. OC/OP clear.
--- NOTE | 2025-03-08 16:16 | W.DCSUMMARY ---
Addendum entered and electronically signed by Blake Toscano MD 03/08/25 22:09:
Read, reviewed, and agree. See same day progress note for additional details.
Jean-Paul Toscano MD
Original Note:
Documented by User: Pili Camara DO, Resident 03/08/25 16:18
Discharge Summary
Discharge Data
Date of Admission: 03/04/25
Date of Discharge: 03/08/25
-
Pending Results: No
Hospital Course
Primary diagnosis: Epistaxis of right nares
Secondary diagnosis: Hypertension, paroxysmal atrial fibrillation on anticoagulation
Hospital course:
Patient is a 79-year-old man with a history of recurrent epistaxis, acute blood loss anemia, atrial fibrillation on Eliquis, and hypertension who presented to the ED on 03/04/2025 for significant bleeding from his right nostril. Patient has had
this issue before and was most recently admitted on 10/14/2023 to 10/18/2023 requiring a nasal balloon catheter insertion. He was taken to the OR on 10/14/2023 and underwent cautery with ENT. In the ED vital signs unremarkable. Labs showed hemoglobin
of 11.2. Patient had posterior nasal bleeding from the right nostril. Nasal balloon was placed in the ED. Bleeding had stopped. Patient's Eliquis was held and ENT was consulted. Patient was admitted for further observation, H&H ordered for
every 6 hours. Patient started on prophylactic Ancef 1 g IV daily. Patient was seen by ENT on 03/05/2025, who recommended that the packing stay in place for 3-4 more days and be taken out as an outpatient. ENT advised to continue holding Eliquis
until the packing is removed as well as continue the antibiotics until packing is removed. Patient with a history of hypertension on lisinopril 5 mg once daily and metoprolol to tartrate 25 mg twice daily. While admitted patient had blood pressures
in the 160s over 70s, so we added as needed hydralazine 10 mg for SBP greater than 160. Patient required 1 hydralazine dose during admission. Patient also complained of irritated throat from breathing through his mouth for which she received
Chloraseptic spray, as well as saline spray for his left nostril.
On day 3 of hospitalization, patient reported that he had 2 episodes 'black, tarry' stools overnight. No one witnessed the stools. Patient also had lower blood pressure, so his metoprolol was held on this day. Patient's hemoglobin at the time was
stable at 10.5, but we decided to order serial H&Hs. We also gave patient some IV fluids, as his BMP indicated he was a little dry. Patient then stayed overnight. On 03/08, ENT removed the nasal balloon and packing from right nares without issue
or bleeding. Patient was prepped for discharge and given a repeat CBC prescription to complete in 1 week. Per ENT guidelines, patient will restart Eliquis and aspirin tomorrow.
Imaging: None
Discharge Plan
-
Patient Disposition: Home (Routine Discharge)
Discharge Diagnosis/Procedures: Posterior epistaxis RIGHT NARES, paroxysmal atrial fibrillation on Eliquis, hypertension
Condition: Good
Diet: No restrictions
Activity: No restrictions
Driving Restrictions: As prior to admission
Bathing Restrictions: None
Activity Restrictions/Additional Instructions:
Restart Eliquis as per ENT recommendations: resume Eliquis and aspirin tomorrow
Please complete repeat CBC in one week. Lab script provided.
Please follow up with your PCP for evaluation of high blood pressure.
Referrals:
Luigi Miller MD [Active, Otology]
Kavitha Anders MD [Family Provider, Internal Medicine]
Prescriptions:
New
(DME) cbc
See Rx Instructions .Route .MEDSUPPLY Qty: 1 0RF
Rx Instructions:
Dx: epistaxis, anemia
Please send results to PCP
Continued
trazodone 100 mg Tablet
100 mg PO HS
escitalopram oxalate 20 mg Tablet
20 mg PO QPM
atorvastatin 80 mg Tablet
80 mg PO QPM
metoprolol tartrate 25 mg Tablet
25 mg PO BID
cholecalciferol (vitamin D3) [Vitamin D3] 25 mcg (1,000 unit) Tablet
25 mcg PO QPM
PreserVision AREDS 2,148 mcg-113 mg-45 mg-17.4mg Tablet
1 tab PO BID
multivitamin Tablet
1 tab PO DAILY
nitroglycerin 0.3 mg Tablet, Sublingual
0.3 mg SUBLINGUAL Q5-15M PRN (Reason: angina)
omeprazole 40 mg Capsule,Delayed Release(Dr/Ec)
40 mg PO DAILY PRN (Reason: reflux)
lisinopril 5 mg tablet
5 mg PO QPM
erythromycin 5 mg/gram (0.5 %) ointment
1 applic LEFT EYE HS
Held
Eliquis 5 MG tablet
5 mg PO BID Qty: 180 1RF
Hold Instructions: Hold until packing is removed by ENT.
aspirin 81 mg Tablet
81 mg PO DAILY
Hold Instructions: Hold until packing is removed by ENT
Discharge Orders:
Discharge Patient (As Directed); Ordered 03/08/25
Ordered By: Pili Camara
Discharge Date and Time
Discharge Date/Time: 03/08/25 14:48
Print Language: BERMUDIAN

Documented by User: Blake Toscano MD 03/08/25 22:05
Discharge Summary
Discharge Data
Date of Admission: 03/04/25
Date of Discharge: 03/08/25
Discharge Plan
-
Patient Disposition: Home (Routine Discharge)
Discharge Diagnosis/Procedures: Posterior epistaxis RIGHT NARES, paroxysmal atrial fibrillation on Eliquis, hypertension
Condition: Good
Diet: No restrictions
Activity: No restrictions
Driving Restrictions: As prior to admission
Bathing Restrictions: None
Activity Restrictions/Additional Instructions:
Restart Eliquis as per ENT recommendations: resume Eliquis and aspirin tomorrow
Please complete repeat CBC in one week. Lab script provided.
Please follow up with your PCP for evaluation of high blood pressure.
Referrals:
Luigi Miller MD [Active, Otology]
Kavitha Anders MD [Family Provider, Internal Medicine]
Prescriptions:
New
(DME) cbc
See Rx Instructions .Route .MEDSUPPLY Qty: 1 0RF
Rx Instructions:
Dx: epistaxis, anemia
Please send results to PCP
Continued
trazodone 100 mg Tablet
100 mg PO HS
escitalopram oxalate 20 mg Tablet
20 mg PO QPM
atorvastatin 80 mg Tablet
80 mg PO QPM
metoprolol tartrate 25 mg Tablet
25 mg PO BID
cholecalciferol (vitamin D3) [Vitamin D3] 25 mcg (1,000 unit) Tablet
25 mcg PO QPM
PreserVision AREDS 2,148 mcg-113 mg-45 mg-17.4mg Tablet
1 tab PO BID
multivitamin Tablet
1 tab PO DAILY
nitroglycerin 0.3 mg Tablet, Sublingual
0.3 mg SUBLINGUAL Q5-15M PRN (Reason: angina)
omeprazole 40 mg Capsule,Delayed Release(Dr/Ec)
40 mg PO DAILY PRN (Reason: reflux)
lisinopril 5 mg tablet
5 mg PO QPM
erythromycin 5 mg/gram (0.5 %) ointment
1 applic LEFT EYE HS
Held
Eliquis 5 MG tablet
5 mg PO BID Qty: 180 1RF
Hold Instructions: Hold until packing is removed by ENT.
aspirin 81 mg Tablet
81 mg PO DAILY
Hold Instructions: Hold until packing is removed by ENT
Discharge Orders:
Discharge Patient (As Directed); Ordered 03/08/25
Ordered By: Pili Camara
Discharge Date and Time
Discharge Date/Time: 03/08/25 14:48
Print Language: BERMUDIAN
== END 2025-03-08 14:48 | disposition home or self-care (01) | DRG 151 ==
LOC: 2 NORTH 18:22
PROVIDERS: Clinical Nurse Specialist Family Health; Registered Nurse; ADMITTING PHYSICIAN Hospitalist; ATTENDING PHYSICIAN Family Medicine; EMERGENCY PHYSICIAN Emergency Medicine; FAMILY PHYSICIAN Internal Medicine; OTHER PHYSICIAN Otolaryngology
DX: R04.0 Epistaxis (principal); D68.32 Hemorrhagic disorder due to extrinsic circulating anticoagulants; D62 Acute posthemorrhagic anemia; I10 Essential (primary) hypertension; I48.0 Paroxysmal atrial fibrillation; Z79.01 Long term (current) use of anticoagulants; K21.9 Gastro-esophageal reflux disease without esophagitis; F32.9 Major depressive disorder, single episode, unspecified; G62.9 Polyneuropathy, unspecified; Z87.891 Personal history of nicotine dependence; Z79.899 Other long term (current) drug therapy; Z79.82 Long term (current) use of aspirin; D64.9 Anemia, unspecified; F10.10 Alcohol abuse, uncomplicated; F43.10 Post-traumatic stress disorder, unspecified; G47.00 Insomnia, unspecified; I25.119 Atherosclerotic heart disease of native coronary artery with unspecified angina pectoris
CPT/HCPCS: 30901; 80048; 80053; 85014; 85018; 85025; 85027; 85610; 85730; 86850; 86900; 86901; 87070; 99285